=== PATIENT | male | born 1935 | race Caucasian/White ===

== ENCOUNTER 2017-01-01 06:04 | Inpatient (IN) ==
[2017-01-01] MEDS ORDERED: Naloxone 0.4 MG/ML INJ IVP PRN (08:36)
[2017-01-01] MEDS ORDERED: Milk and Molasses Enema 200 ML RC PRN (08:47)
[2017-01-01] MEDS ORDERED: Bisacodyl 10 MG RECTAL SUPPOSITORY RC PRN (08:47)
--- NOTE | 2017-01-01 09:00 | Internal Med History&Physical ---
Date of Encounter: 01/01/17 Time of Encounter: 08:30 Assessment and Plan (1) Acute respiratory failure with hypoxemia Current visit: Yes Status: Acute Secondary to pulmonary edema. Could be secondary to new diagnosis of acute heart failure plus aortic stenosis in the setting of atrial fibrillation. BNP 1690. Troponin 0.12. 2/3: CXR shows bilateral pulmonary edema and moderate pleural effusions. Patient is requiring 2.5 L of oxygen via NC. Lasix 40 mg IV bid. Fluid restriction 1.5 L/day. Strict I/o. low dose coreg. Check echocardiogram. (2) CHF exacerbation Current visit: No Status: Acute unknown type. no prior echo. plan as above. check echocardiogram. Qualifiers: Congestive heart failure type: unspecified congestive heart failure type Qualified Code(s): I50.9 - Heart failure, unspecified (3) Elevated troponin Current visit: No Status: Acute Likely secondary to supply demand mismatch from acute CHF. Follow up serial troponins. Check EKG. (4) Bilateral pleural effusion Current visit: No Status: Acute plan as above. (5) Supratherapeutic INR Current visit: Yes Status: Acute INR 3. Holding warfarin. Daily inr check. (6) Constipation Current visit: Yes Status: Acute History of chronic constipation. He presents with abdominal pain and 3 day without a bowel movement. He agrees with rectal Dulcolax and an enema if needed. Qualifiers: Constipation type: unspecified constipation type Qualified Code(s): K59.00 - Constipation, unspecified (7) Aortic valve calcification Current visit: Yes Status: Chronic CTAP done in 12/24 revealed moderate to severe atherosclerotic disease with severe aortic valvular calcification and bilateral moderate bilateral pleural effusions. echocardiogram ordered. (8) HTN (hypertension) Current visit: Yes Status: Acute Controlled. Bp monitor Qualifiers: Hypertension type: essential hypertension Qualified Code(s): I10 - Essential (primary) hypertension (9) Atrial fibrillation and flutter Current visit: Yes Status: Acute controlled. Holding home dose of warfarin due to supratherapeutic INR. (10) Hypothyroidism Current visit: Yes Status: Acute Continue home dose levothyroxine. 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 Internal Medicine - H&P: HPI Chief complaint: progressive shortness of breath for 3 days. Admitted From: Long-term Nursing Facility Plans for Post Hospital Care: Transfer Halfway Facility History of present illness: Mr. 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 On 12/24, he presented to [facility] with shortness of breath, diagnosed with acute heart failure and sent back to [facility] on 20 mg oral Lasix and oxygen 2L NC. His shortness of breath continued to progress and he developed yellowish productive cough, wheezing and orthopnea. He denies any chest pain, fever, hemoptysis, upper respiratory symptoms, syncope, palpitations, LE edema, urinary symptoms. He complains of abdominal pain and constipation for 3 days. At [facility] ED, he received IV 40 mg Lasix, nebs, Levofloxacin and Vancomycin. Code status formm from [facility] designates his friend Thalia Harris as his POA, . Prior studies: 12/24: CXR showed moderate right pleural effusion and pulmonary edema. 12/31/16: CTAP showed diffuse gastric wall thickening, nodular liver (?cirrhosis) , moderate to severe atherosclerotic disease with severe aortic valvular calcification and bilateral moderate bilateral pleural effusions. Past Med Surg Social Fam HX - Past Medical History Medical history: atrial fibrillation, CVA, GERD, hyperlipidemia, hypertension, thyroid disease Psychiatric history: depression - Past Surgical History Surgical History: orthopedic, other - Social History Smoking Status: Never smoker Smokeless Tobacco Status: No Alcohol use: none Drug use: none Internal Medicine - H&P: Meds Atorvastatin [Lipitor] 20 mg PO HS 12/23/16 [History] Citalopram Hydrobromide [Citalopram HBr] 10 mg PO DAILY 12/23/16 [History] Levothyroxine Sodium [Levoxyl] 88 mcg PO DAILY 12/23/16 [History] Omeprazole 20 mg PO DAILY 12/23/16 [History] Sennosides/Docusate Sodium [Senna Plus] 1 each PO BID 12/23/16 [History] Warfarin perPT [Coumadin perPT] 0.5 mg PO DAILY 12/23/16 [History] Acetaminophen [Tylenol] 1,000 mg PO Q8H 12/24/16 [History] Furosemide [Lasix] 20 mg PO DAILY #10 tablet 12/24/16 [Rx] Multivitamin [Multi-Day Vitamins] 1 each PO DAILY 12/24/16 [History] Citalopram [CeleXA] 5 mg PO DAILY 01/01/17 [History] Mirtazapine [Remeron] 15 mg PO HS 01/01/17 [History] Potassium Chloride [K-Tab ER] 20 meq PO BID 01/01/17 [History] Allergies metoclopramide [From Reglan] Allergy (Verified 01/01/17 04:15) See Comments Unknown reaction. All Systems PM: A 10-system review of systems was performed and is negative for pertinent findings except as documented above in the HPI. - Constitutional Vitals: Temp Pulse Resp BP Pulse Ox 99.3 F 68 18 124/61 93 L 01/01/17 08:21 01/01/17 08:21 01/01/17 08:21 01/01/17 08:21 01/01/17 08:21 General appearance: Present: cooperative, A&O X 3, pleasant, no acute distress, answers questions appropriately - Eye Eye exam: Present: PERRL, sclera anicteric - Neck Neck exam general surgery: Present: supple, trachea midline. Absent: lymphadenopathy - Respiratory Respiratory exam: Present: decreased breath sounds (at lower lung bases. mild wheezes.) - Cardiovascular Cardiovascular exam: Present: irregular rhythm, systolic murmur (at mitral and aortic valve) - GI/Abdominal GI/Abdominal exam: Present: normal bowel sounds, soft. Absent: distended, tenderness - Extremities Exam Extremities exam: Absent: pedal edema - Neurological Exam Neurological exam: Present: alert, oriented X3. Absent: facial droop, speech deficit Additional comments: Left arm hemiparesis with signs of contractures of hand and forearm. left leg with strength 3/5. - Skin Skin exam: Present: dry, intact Internal Med - H&P Results - EKG Data Prior EKG available for review: yes EKG comments: EKG at [facility]: atrial fibrillation/atrial flutter HR 86, no new changes. ST depression in V1-V2 is similar from prior EKG. - Diagnostic Studies Chest x-ray Status: image reviewed by me (bilateral pulmonary edema and moderate pleural effusions. )
[2017-01-01 09:01] LABS: Bilirubin,Urine Negative (Negative); Blood,Urine Trace (Negative); Clarity,Urine Clear (Clear); Color,Urine Yellow (Yellow); Glucose,Urine (UA) Normal (Normal); Ketones,Urine Negative (Negative); Leukocyte Esterase,Urine Negative (Negative); Nitrite,Urine Negative (Negative); Protein,Urine Negative (Neg-Trace); Specific Gravity,Urine 1.009 (1.010-1.025); Urobilinogen,Urine Normal (Normal)
[2017-01-01 09:03] LABS: Bacteria,Urine None Seen per hpf (None-Few); Hyaline Casts,Urine None Seen per lpf (None-Few); Squamous Epithelial Cell,Urine Few per lpf (None-Few); WBC,Urine 0-3 per hpf (0-3)
[2017-01-01] MEDS: Sennosides/Docusate Sodium TABLET PO SCH (09:35)
[2017-01-01] MEDS ORDERED: Bisacodyl 10 MG RECTAL SUPPOSITORY RC ONE (11:00)
[2017-01-01 11:30] LABS: Magnesium 1.7 mg/dL (1.6-2.6)
[2017-01-01 11:55] LABS: Thyroid Stimulating Hormone 3.771 mcIU/mL (0.350-4.840)
[2017-01-01] MEDS: Acetaminophen 325 MG TABLET PO PRN (13:01)
--- NOTE | 2017-01-01 13:06 | Cardiology Consult Note ---
<Joesph Stone - Last Filed: 01/01/17 13:51> Date of Encounter: 01/01/17 Time of Encounter: 13:04 Assessment and Plan (1) CHF exacerbation Current Visit: No Status: Acute - acute respiratory failure secondary to pulmonary edema possibly from acute congestive heart failure - BNP 1690, clinically appears to have acute congestive heart failure - lungs are diminished with bibasilar crackles/rales, absent pedal edema - due to patient's age, clinical condition, and symptoms recommend optimizing medical management for now until results of ECHO before making further recommendations - IV lasix today and switching to PO Lasix tomorrow, as he appears euvolemic, continue to monitor renal function Cr 0.77 - agree with Coreg - no documented prior ECHO, stress, or LHC Qualifiers: Congestive heart failure type: unspecified congestive heart failure type Qualified Code(s): I50.9 - Heart failure, unspecified (2) Elevated troponin Current Visit: No Status: Acute - elevated troponin 0.17 (0.12) likely secondary to supply demand mismatch - due to patient's clinical condition and age would not recommend aggressive treatments (3) Acute respiratory failure with hypoxemia Current Visit: Yes Status: Acute - CXR reviewed, bilateral pulm edema with moderate pleural effusion visualized on CT abd/pelvis - likely secondary to pulmonary edema from acute congestive heart failure - patient currently requiring 2.5L of O2 NC - fluid restriction and strict I/Os - ECHO ordered for today, further recommendations pending results (4) Atrial fibrillation and flutter Current Visit: Yes Status: Acute - patient is irregularly irregular, rate controlled 80 - he is currently supratherapeutic with INR 3, primary team managing - will check ECHO - TSH 3.77 Discussion w patient/family: The assessment and plan as outlined above was discussed with the patient and/or family members who expressed understanding and agreement. All questions were answered. Thank you for involving us in the care of your patient. Please call with any questions. History of Present Illness Consult date: 01/01/17 Requesting physician: Michelle Jo Consult reason: SOB, CHF Chief complaint: SOB History of present illness: Mr. 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 Decided to come be evaluated at [facility] ED because he thought it was time to get checked out. Denies any associated chest pain, fever, cough, palpitations, lightheadedness or nausea. He denies ay history of DVT/PE. Takes coumadin for his atrial fibrillation. Reports weight loss of >10 lbs recently due to decrease appetite and abdominal pain. CT abd/pelvis revealed moderate bilateral pleural effusion and cholelithiasis. BNP elevated at 1690. Troponin initiall 0.12. EKG shows atiral fibrillation with normal rate. Denies any history of cardiac ischemic disease. Important CV studies: - NONE Past Med Surg Social Fam HX - Past Medical History Medical history: atrial fibrillation, CVA, GERD, hyperlipidemia, hypertension, thyroid disease Psychiatric history: depression - Past Surgical History Surgical History: orthopedic, other - Social History Smoking Status: Never smoker Smokeless Tobacco Status: No Alcohol use: none Drug use: none Medications and Allergies Atorvastatin [Lipitor] 20 mg PO HS 12/23/16 [History] Levothyroxine Sodium [Levoxyl] 88 mcg PO DAILY 12/23/16 [History] Omeprazole 20 mg PO DAILY 12/23/16 [History] Sennosides/Docusate Sodium [Senna Plus] 1 tab PO BID 12/23/16 [History] Warfarin perPT [Coumadin perPT] 0.5 mg PO Q48H 12/23/16 [History] Acetaminophen [Tylenol] 1,000 mg PO Q8H 12/24/16 [History] Furosemide [Lasix] 20 mg PO DAILY #10 tablet 12/24/16 [Rx] Multivitamin [Multi-Day Vitamins] 1 tab PO DAILY 12/24/16 [History] Citalopram [CeleXA] 5 mg PO DAILY 01/01/17 [History] Lactose-Reduced Food [Ensure Original] 1 bottle PO QPM 01/01/17 [History] Mirtazapine [Remeron] 15 mg PO HS 01/01/17 [History] Potassium Chloride [K-Tab ER] 10 meq PO BID 01/01/17 [History] Allergies metoclopramide [From Reglan] Allergy (Verified 01/01/17 04:15) See Comments Unknown reaction. All Systems Review: A 10-system review of systems was performed and is negative for pertinent findings except as documented above in the HPI. - Constitutional Constitutional: weakness, weight loss (10 lbs), no fever(s), no headache(s) - Cardiovascular Cardiovascular: dyspnea at rest, dyspnea on exertion, irregular heart rhythm, no chest pain at rest, no chest pain with exertion, no leg edema, no lightheadedness, no palpitations, no syncope - Respiratory Respiratory: cough, dyspnea, no hemoptysis - Gastrointestinal Gastrointestinal: abdominal pain Physical Examination Vital Signs, Last 4 Hours Temp Pulse Resp BP Pulse Ox 01/01/17 11:28 99.5 F 72 16 112/62 97 General: Other (conversational dyspnea) HEENT: Atraumatic, Normocephaly, Mucus Membranes Moist Neck: Normal carotid pulses, Other (JVD 6m) Cardiac: Other (irregularly irregular) Lungs: Other (diminished breath sound bilaterally, bibasilar rales) Neuro: Alert and responsive, No focal deficits noted Abdomen: Soft, Non-Tender Skin: No rashes noted on visualized skin Musculoskeletal: No Chest Wall Tenderness Extremities: No Clubbing, No Cyanosis, No Edema, Normal Pulses Results Lab Results 01/01/17 01/01/17 10:57 10:57 Magnesium 1.7 Troponin I 0.17 H* TSH 3.771 Consult Discharge Plan - Plan Referrals: NO,PCP [Primary Care Provider] - <Oscar Lacey - Last Filed: 01/01/17 14:07> Date of Encounter: 01/01/17 Assessment and Plan Discussion w patient/family: The assessment and plan as outlined above was discussed with the patient and/or family members who expressed understanding and agreement. All questions were answered. Thank you for involving us in the care of your patient. Please call with any questions. History of Present Illness History of present illness: Mr. Kearney is a 81 year old male All Systems Review: A 10-system review of systems was performed and is negative for pertinent findings except as documented above in the HPI. Physical Examination Vital Signs, Last 4 Hours Temp Pulse Resp BP Pulse Ox 01/01/17 11:28 99.5 F 72 16 112/62 97 Results Lab Results 01/01/17 01/01/17 10:57 10:57 Magnesium 1.7 Troponin I 0.17 H* TSH 3.771 - Attending Attestation I examined this patient and my medical decision-making was reviewed with the DOCK SUPERINTENDENT/PA/Advanced Practice Nurse/Resident Physician. I agree with the documented findings, disposition and treatment plan as described except to the extent set forth below. history is liimited. Pt here for sob for the past 2 weeks, no cp , has some PND VSS JVD: 8 cm Chest : occ crackles CVS : irregular , ? s3 appears to have a dense left suzi plegia EKG: reviewed by me shows afib with a controlled ventricular response Echo Pending VSS JVD: ? 5 Lungs; Clear CVS: irregular A/P : New onset CHF CVA: plan; gentle diuresis check echo would not attempt cath etc will make further rec based on echo results Thanks !
[2017-01-01] MEDS: Furosemide 40 MG in 0.9 % Sodium Chloride 50 ML IVPB SCH (20:19)
[2017-01-01] MEDS: Mirtazapine 15 MG TABLET PO SCH (20:20)
[2017-01-02] MEDS: Acetaminophen 325 MG TABLET PO PRN (00:23)
[2017-01-02 06:30] LABS: INR 2.8; Prothrombin Time 31.4 Seconds (9.4-12.1)
[2017-01-02 06:44] LABS: BUN/Creatinine Ratio 30 (6-26); Blood Urea Nitrogen 23 mg/dL (8-26); Calcium 8.9 mg/dL (8.6-10.8); Carbon Dioxide 24 mEq/L (19-29); Chloride 107 mEq/L (98-109); Glucose 95 mg/dL (70-99); Magnesium 1.7 mg/dL (1.6-2.6); Osmolality,Calculated 301 (280-300); Potassium 3.3 mEq/L (3.5-4.5); Sodium 144 mEq/L (136-145); eGFR For African Americans > 60 (> 60); eGFR For Non-African Americans > 60 (> 60)
--- NOTE | 2017-01-02 08:25 | ECHO - Doppler Report ---
Echo with Saline Contrast Name: Shane Kearney Date of Study: 01/01/2017 Date: 1935 Ht: 66.0 in Medical Record#: [id number] Age: 81 Wt: 106.0 lb Gender: Male BSA: 1.53 Order #: [id number] Location: [facility] Room #: 2NE19 Reading Physician: Facundo Wesley DO, MALINDA, CHAI CONTRERAS Ski Base Trimmer: Eva Red Ordering Physician: Michelle Jo MD Primary Physician: None Indications: New diagnosis of CHF Impressions: LVEF 40-45%. Mildly dilated left ventricle. Gllobal left ventricular systolic dysfunction. Indeterminate diastolic function. Normal right ventricular structure and function. Moderate to severely dilated left atrium. No evidence of a PFO with agitated saline contrast. Moderately calcified aortic valve leaflets. Moderate aortic regurgitation. Moderate aortic stenosis. Mean gradient 30 mmHg. Peak velocity 3.60 m/s. Moderate-severe mitral regurgitation. Moderate-severe tricuspid regurgitation. Severe pulmonary hypertension. Estimated RVSP is 60 mmHg. Small pericardial effusion localized around the right atrium. No tamponade. Left Ventricular Wall Motion: Rest Echo Findings The apex, apical inferior, mid inferior, basal inferior, apical anterior, mid anterior, basal anterior, apical septal, mid inferior septal, basal inferior septal, apical lateral, mid anterior lateral, basal anterior lateral, mid anterior septal, mid inferior lateral, basal anterior septal and basal inferior lateral [place] were hypokinetic. Findings: Study Quality * Technically adequate exam. ECG Findings * Rhythm apears to be atrial fibrillation. Left Ventricle * LVEF 40-45%. * Mildly dilated left ventricle. * Gllobal left ventricular systolic dysfunction. * Indeterminate diastolic function. Right Ventricle * Normal right ventricular structure and function. Left Atrium * Moderate to severely dilated left atrium. Right Atrium * Moderately dilated right atrium. Interatrial Septum * No evidence of PFO with agitated saline contrast. Aortic Valve * Trileaflet aortic valve. * Moderately calcified aortic valve leaflets. * Moderate aortic regurgitation. * Moderate aortic stenosis. Mean gradient 30 mmHg. Peak velocity 3.60 m/s. Mitral Valve * Mildly thickened mitral valve leaflets. * Mild mitral annular calcification * Moderate-severe mitral regurgitation. * No mitral stenosis. Tricuspid Valve * Normal tricuspid valve structure. * Moderate-severe tricuspid regurgitation. * Severe pulmonary hypertension. * Estimated RVSP is 60 mmHg. * Estimated RA pressure is 5 mmHg. Pulmonic Valve * Normal pulmonic valve structure and function. * Trace pulmonic regurgitation. Aorta * Normally sized aortic root. Pericardium * There is a small pericardial effusion localized around the right atrium. * There is no echocardiographic evidence of tamponade. IVC * Normal IVC dimensions and inspiratory collapse. Pulmonary Artery * Normal visualized portions of the main pulmonary artery. History Hypertension Congestive Heart Failure Contrast: Agitated saline 20 ml. Measurements: BP: 107/ 60 2D Normal Values RVIDd: 3.20 cm <2.7 cm IVSd: .90 cm 0.6 - 1.0 cm LVIDd: 5.70 cm 3.7 - 5.6 cm LVPWd: .90 cm 0.6 - 1.1 cm LVIDs: 4.10 cm 1.5 - 3.6 cm AO: 3.10 cm < 4.0 cm LA: 4.40 cm 2.0 - 4.0cm %FS: 21.20 cm >25 % LVOT Diam: 2.00 cm LA volume: 77 Mitral Valve Peak E:1.20 m/sec Peak A:1.00 m/sec E/A Ratio:1.2 Peak E' Lat Oscar:6.04 cm/s Peak E' Med Oscar:5.07 cm/s E/E' Lat Ratio:19.9 E/E' Med Ratio:23.7 LVOT Peak Oscar:.92 m/sec Mean Oscar:.68 m/sec Peak Grad:3.00 mmHg Mean Grad:2.00 mmHg Aortic Valve Peak Oscar:3.60 m/sec Mean Oscar:2.57 m/sec Peak Grad:52.00 mmHg Mean Grad:30.00 mmHg Valve Area:.76 cm2 AI pressure Half-time: 387.00 msec Tricuspid Valve TV Regurg Peak Grad: 55.00mmHg TV Regurg Peak Oscar: 3.72m/sec Updated by Facundo Wesley DO, MALINDA, CHAI CONTRERAS on 01/02/2017 8:19:22 AM electronically signed on 01/02/2017 8:20:26 AM with status of Final Wall Motion Rogers: 1=Normal, 2=Hypokinesis, 3=Akinesis, 4=Dyskinesis, 5=Aneurysmal, 6=Hyperkinetic, X=Not Visualized (Blank)=Missing
--- NOTE | 2017-01-02 08:37 | Internal Med Progress Note ---
Date of Encounter: 01/02/17 Time of Encounter: 08:33 - Assessment and plan (1) Acute systolic (congestive) heart failure Current Visit: Yes Status: Acute Assessment and plan: New onset of Acute systolic CHF EF : 40 -45% On Warfarin ( resumed INR 2.7), Lisinopril ( 2.5 mg as his blood pressure is at borderline) , BB, Statin and Lasix with K supplement. Negative 630 ml.( I/O), Weight 48.2 kg cardiology on board. (2) Elevated troponin Current Visit: No Status: Acute Assessment and plan: demand ischimia. no further work up. (3) Acute respiratory failure with hypoxemia Current Visit: Yes Status: Acute Assessment and plan: respiratory symptoms secondary to cardiac issue. he feels much better. 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 3 years old lives in a [place] Medical decision making : Patient has [id number] risk for worsening heart failure in spite of being on appropriate treatment. - Subjective Interval history: Patient seen and examined. Chart reviewed. Patient feels occasional shortness of breath. denies chest pain. - Constitutional Vitals: Temp Pulse Resp BP Pulse Ox 97.1 F L 73 16 110/58 97 01/02/17 07:53 01/02/17 07:53 01/02/17 07:53 01/02/17 07:53 01/02/17 07:53 General appearance: Present: cooperative, A&O X 3, pleasant, no acute distress, answers questions appropriately Exam: severe left dense hemiplegia. - Head Head exam: Present: atraumatic, normocephalic - Eye Eye exam: Present: PERRL, conjuntiva pink, sclera anicteric Pupils: Present: PERRL - Neck Neck exam general surgery: Present: supple, trachea midline. Absent: lymphadenopathy - Respiratory Respiratory exam: Present: CTAB. Absent: accessory muscle use, rales, rhonchi, wheezes - Cardiovascular Cardiovascular exam: Present: RRR, +S1, +S2. Absent: diastolic murmur, gallop, rubs, systolic murmur - GI/Abdominal GI/Abdominal exam: Present: normal bowel sounds, soft, no peritoneal signs. Absent: distended, tenderness - Extremities Exam Extremities exam: Present: warm, radial pulses palpable and symetrical. Absent : calf tenderness, cyanotic, pedal edema - Neurological Exam Neurological exam: Present: CN II-XII intact, oriented X3, no focal deficits. Absent: pronater drift, facial droop, speech deficit - Skin Skin exam: Present: dry, intact Internal Medicine: Result - Labs CBC & Chem 7: 01/02/17 05:33 Labs: BMP 01/02/17 05:33 Sodium 144 Potassium 3.3 L Chloride 107 Carbon Dioxide 24 BUN 23 Creatinine 0.76 Glucose 95 Calcium 8.9 Cardiac Enzymes 01/01/17 01/01/17 Range/Units 10:57 18:23 Troponin I 0.17 H* 0.20 H* (0-0.03) ng/mL Urine 01/01/17 Range/Units 08:40 Urine Color Yellow (Yellow) Urine Clarity Clear (Clear) Urine pH 7.0 (5.0-8.0) pH Units Ur Specific [place] 1.009 L (1.010-1.025) Urine Protein Negative (Neg-Trace) mg/dL Urine Glucose (UA) Normal (Normal) mg/dL - ABG Interpretation ABG results: PT/INR, D-dimer PT 31.4 Seconds (9.4-12.1) H 01/02/17 05:33 Consult Discharge Plan - Plan Referrals: NO,PCP [Primary Care Provider] -
--- NOTE | 2017-01-02 10:50 | Cardiology Progress Note ---
Date of Encounter: 01/02/17 Time of Encounter: 10:30 Assessment and Plan Discussion w patient/family: The assessment and plan as outlined above was discussed with the patient and/or family members who expressed understanding and agreement. All questions were answered. Thank you for involving us in the care of your patient. Please call with any questions. Subjective Interval history: less sob , able to lie flat no cp. cough Objective Vital Signs, Last 4 Hours Temp Pulse Resp BP Pulse Ox 01/02/17 07:53 97.1 F L 73 16 110/58 97 General: Conversant HEENT: Atraumatic Cardiac: Reg Rate and Rhythm Lungs: Normal Breath Sounds Abdomen: Soft Skin: No rashes noted on visualized skin Musculoskeletal: No Chest Wall Tenderness Extremities: No Clubbing Results 01/02/17 05:33 Lab Results 01/01/17 01/01/17 01/01/17 10:57 10:57 18:23 INR Sodium Potassium Chloride Carbon Dioxide BUN Creatinine Glucose Calcium Magnesium 1.7 Troponin I 0.17 H* 0.20 H* B-Natriuretic Peptide TSH 3.771 01/02/17 01/02/17 01/02/17 05:33 05:33 05:33 INR 2.8 Sodium 144 Potassium 3.3 L Chloride 107 Carbon Dioxide 24 BUN 23 Creatinine 0.76 Glucose 95 Calcium 8.9 Magnesium 1.7 Troponin I B-Natriuretic Peptide 2300 H TSH Consult Discharge Plan - Plan Additional Instructions: keep on po lasix pt appears to be euvolemic will sign off Thanks Referrals: NO,PCP [Primary Care Provider] -
[2017-01-02] MEDS: Sennosides/Docusate Sodium TABLET PO SCH (10:59)
[2017-01-02] MEDS: Mag Hydrox/Al Hydrox/Simeth 30 ML UDC PO PRN (13:29)
[2017-01-02] MEDS: Furosemide 40 MG in 0.9 % Sodium Chloride 50 ML IVPB SCH ×2 (13:32→17:10)
[2017-01-02] MEDS ORDERED: *HR* Warfarin 1 MG TABLET PO SCH (18:00)
[2017-01-02] MEDS: Mirtazapine 15 MG TABLET PO SCH (21:07)
[2017-01-03 05:15] LABS: Basophils % 0.3 %; Eosinophils # 0.2 K/mcL (0.0-0.6); Eosinophils % 2.3 %; Hematocrit 40.9 % (37.5-50.1); Hemoglobin 13.3 g/dL (12.9-16.9); Immature Granulocytes % 0.9 % (0-4); Lymphocytes # 1.1 K/mcL (0.6-4.6); Lymphocytes % 12.6 %; Mean Corpuscular HGB Conc 32.5 g/dL (31.6-35.5); Mean Corpuscular Hemoglobin 30.3 pg (28.0-33.3); Mean Corpuscular Volume 93.2 fL (83.0-100.0); Mean Platelet Volume 11.4 fL (9.4-12.4); Monocytes # 0.7 K/mcL (0.0-1.3); Monocytes % 8.1 %; Neutrophils # 6.8 K/mcL (1.6-8.9); Platelet Count 258 K/mcL (140-400); Red Blood Count 4.39 M/mcL (4.19-5.50); Red Cell Distribution Width 16.8 % (11.5-14.5); Segmented Neutrophils % 75.8 %
[2017-01-03 05:27] LABS: Alanine Aminotransferase 21 Units/L (0-55); Albumin 2.3 g/dL (3.5-5.0); Albumin/Globulin Ratio 0.5 (1.1-2.2); Alkaline Phosphatase 73 Units/L (38-126); Aspartate Amino Transferase 40 Units/L (5-34); BUN/Creatinine Ratio 33 (6-26); Bilirubin,Total 0.9 mg/dL (0.2-1.2); Blood Urea Nitrogen 23 mg/dL (8-26); Carbon Dioxide 25 mEq/L (19-29); Chloride 106 mEq/L (98-109); Globulin 4.8 g/dL (2.4-3.5); Glucose 100 mg/dL (70-99); Osmolality,Calculated 300 (280-300); Potassium 3.3 mEq/L (3.5-4.5); Sodium 143 mEq/L (136-145); Total Protein 7.1 g/dL (6.0-8.3); eGFR For African Americans > 60 (> 60); eGFR For Non-African Americans > 60 (> 60)
[2017-01-03 05:28] LABS: BUN/Creatinine Ratio 32 (6-26); Blood Urea Nitrogen 22 mg/dL (8-26); Calcium 8.9 mg/dL (8.6-10.8); Carbon Dioxide 24 mEq/L (19-29); Chloride 106 mEq/L (98-109); Glucose 100 mg/dL (70-99); Osmolality,Calculated 297 (280-300); Potassium 3.4 mEq/L (3.5-4.5); Sodium 142 mEq/L (136-145); eGFR For African Americans > 60 (> 60); eGFR For Non-African Americans > 60 (> 60)
[2017-01-03] MEDS: Warfarin perPT PO SCH ×2 (07:55→08:27)
[2017-01-03] MEDS: Furosemide 40 MG in 0.9 % Sodium Chloride 50 ML IVPB SCH ×2 (08:36→18:32)
[2017-01-03] MEDS: Sennosides/Docusate Sodium TABLET PO SCH (08:44)
[2017-01-03] MEDS ORDERED: 0.9 % Sodium Chloride 500 ML IVC ONE (11:12)
[2017-01-03] MEDS ORDERED: Levofloxacin 500 MG/100 ML 500 MG/100 ML BAG IVPB SCH (16:00)
--- NOTE | 2017-01-03 17:08 | Internal Med Progress Note ---
Date of Encounter: 01/03/17 Time of Encounter: 17:01 - Assessment and plan (1) Acute systolic (congestive) heart failure Current Visit: Yes Status: Acute Assessment and plan: New onset of Acute systolic CHF EF : 40 -45% On Warfarin ( resumed INR 2.7), Lisinopril ( 2.5 mg as his blood pressure is at borderline) , BB, Statin and Lasix with K supplement. Negative 630 ml.( I/O), Weight 48.2 kg cardiology on board. 01/03/2017 546 ml negative balance Weight drop by 800 mg on ACEI/BB/ASA/Statin also has lasix on board with K replacement. (2) Elevated troponin Current Visit: No Status: Acute Assessment and plan: demand ischimia. no further work up. (3) Acute respiratory failure with hypoxemia Current Visit: Yes Status: Acute Assessment and plan: respiratory symptoms secondary to cardiac issue. he feels much better. 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 3 years old lives in a NH 01/03/2017 decrease mentation possibility of New CVA/Infection will get CT head/Blood culture/Abx discussed with family and POA verbalized understanding. Medical decision making : Patient has [id number] risk for worsening heart failure in spite of being on appropriate treatment. - Subjective Interval history: Patient seen and examined. Chart reviewed. Patient feels occasional shortness of breath. denies chest pain. 01/03/2017 noted patient had decrease mentation family and POA at bedside. discuss at length. possibility of another CVA, or infection as possible etilogy for his worsening. POA understood and other family members understood. - Constitutional Vitals: Temp Pulse Resp BP Pulse Ox 99.2 F 53 16 81/51 100 01/03/17 15:36 01/03/17 15:36 01/03/17 15:36 01/03/17 15:36 01/03/17 15:36 General appearance: Present: cooperative, A&O X 3, pleasant, no acute distress, answers questions appropriately - Head Head exam: Present: atraumatic, normocephalic - Eye Eye exam: Present: PERRL, conjuntiva pink, sclera anicteric Pupils: Present: PERRL - Neck Neck exam general surgery: Present: supple, trachea midline. Absent: lymphadenopathy - Respiratory Respiratory exam: Present: CTAB. Absent: accessory muscle use, rales, rhonchi, wheezes - Cardiovascular Cardiovascular exam: Present: RRR, +S1, +S2. Absent: diastolic murmur, gallop, rubs, systolic murmur - GI/Abdominal GI/Abdominal exam: Present: normal bowel sounds, soft, no peritoneal signs. Absent: distended, tenderness - Extremities Exam Extremities exam: Present: warm, radial pulses palpable and symetrical. Absent : calf tenderness, cyanotic, pedal edema - Neurological Exam Neurological exam: Present: CN II-XII intact, oriented X3, no focal deficits. Absent: pronater drift, facial droop, speech deficit - Skin Skin exam: Present: dry, intact Internal Medicine: Result - Labs CBC & Chem 7: 01/03/17 04:49 01/03/17 04:49 Labs: Short CBC 01/03/17 Range/Units 04:49 WBC 9.0 (4.3-11.1) K/mcL Hgb 13.3 (12.9-16.9) g/dL Hct 40.9 (37.5-50.1) % Plt Count 258 (140-400) K/mcL Neutrophils # 6.8 (1.6-8.9) K/mcL BMP 01/03/17 01/03/17 04:49 04:49 Sodium 142 143 Potassium 3.4 L 3.3 L Chloride 106 106 Carbon Dioxide 24 25 BUN 22 23 Creatinine 0.68 L 0.69 L Glucose 100 H 100 H Calcium 8.9 9.0 Liver Function 01/03/17 Range/Units 04:49 Total Bilirubin 0.9 (0.2-1.2) mg/dL AST 40 H (5-34) Units/L ALT 21 (0-55) Units/L Alkaline Phosphatase 73 (38-126) Units/L Albumin 2.3 L (3.5-5.0) g/dL - ABG Interpretation ABG results: PT/INR, D-dimer PT 33.0 Seconds (9.4-12.1) H 01/03/17 04:49 - Impressions Impressions Head CT 01/03/17 15:54 IMPRESSION: 1. No acute intracranial abnormality. 2. Acute right maxillary sinusitis. D/ / 01/03/2017 16:49:39 Keo Davey MD / ferny Interpreting Provider: Keo Davey MD Consult Discharge Plan - Plan Additional Instructions: keep on po lasix pt appears to be euvolemic will sign off Thanks Referrals: NO,PCP [Primary Care Provider] -
[2017-01-03] MEDS: Piperacillin/Tazobactam 3.375 GM in D5% in Water (Mini-Bag+) 100 ML IVPB SCH (18:32)
[2017-01-03] MEDS: Mirtazapine 15 MG TABLET PO SCH (22:34)
[2017-01-04] MEDS: Piperacillin/Tazobactam 3.375 GM in D5% in Water (Mini-Bag+) 100 ML IVPB SCH ×3 (00:13→08:34)
[2017-01-04] MEDS: Acetaminophen 325 MG TABLET PO PRN ×3 (00:49→18:22)
[2017-01-04 04:47] LABS: Basophils % 0.5 %; Eosinophils # 0.4 K/mcL (0.0-0.6); Eosinophils % 4.5 %; Hematocrit 36.6 % (37.5-50.1); Immature Granulocytes % 0.3 % (0-4); Lymphocytes # 1.5 K/mcL (0.6-4.6); Lymphocytes % 17.7 %; Mean Corpuscular Hemoglobin 29.7 pg (28.0-33.3); Mean Corpuscular Volume 92.9 fL (83.0-100.0); Mean Platelet Volume 11.7 fL (9.4-12.4); Monocytes # 0.9 K/mcL (0.0-1.3); Monocytes % 9.9 %; Neutrophils # 5.8 K/mcL (1.6-8.9); Platelet Count 249 K/mcL (140-400); Red Blood Count 3.94 M/mcL (4.19-5.50); Red Cell Distribution Width 16.9 % (11.5-14.5); Segmented Neutrophils % 67.1 %
[2017-01-04 05:04] LABS: BUN/Creatinine Ratio 35 (6-26); Blood Urea Nitrogen 25 mg/dL (8-26); Calcium 8.5 mg/dL (8.6-10.8); Carbon Dioxide 24 mEq/L (19-29); Chloride 110 mEq/L (98-109); Glucose 99 mg/dL (70-99); Osmolality,Calculated 304 (280-300); Potassium 3.7 mEq/L (3.5-4.5); Sodium 145 mEq/L (136-145); eGFR For African Americans > 60 (> 60); eGFR For Non-African Americans > 60 (> 60)
[2017-01-04 05:05] LABS: Hemoglobin 11.7 g/dL (12.9-16.9)
[2017-01-04 05:07] LABS: INR 2.7
[2017-01-04] MEDS: Sennosides/Docusate Sodium TABLET PO SCH (08:33)
[2017-01-04] MEDS: Furosemide 40 MG in 0.9 % Sodium Chloride 50 ML IVPB SCH (08:35)
--- NOTE | 2017-01-04 10:21 | Internal Med Progress Note ---
<Carlos Wilkerson - Last Filed: 01/04/17 15:54> Date of Encounter: 01/04/17 Time of Encounter: 10:21 - Assessment and plan (1) Hypotension Current Visit: Yes Status: Acute Assessment and plan: Echo showed LVEF 40 to 45%, global LV systolic dysfunction, BNP was 2300 2 days ago, bradycardiac as well, possible cardiogenic shock, MAP is below 60, did not respond to fluid, will check stat trop, BNP, pt is lethergic, spoke to pt's medical POA, changed code status to DNRCCA/DNI but pressor support for his BP is fine, will move him to step down unit and will start him on dobutamine drip. Qualifiers: Qualified Code(s): I95.9 - Hypotension, unspecified (2) Bradycardia Current Visit: Yes Status: Acute Assessment and plan: Received coreg this AM, gave 1x 0.5mg atropine, HR improved to 60, con't to monitor. (3) Systolic CHF Current Visit: Yes Status: Acute Assessment and plan: Suspecting cardiogenic shock, will start him on dobutamin drip in step down unit , closely monitor his VS and clinical status. Qualifiers: Qualified Code(s): I50.20 - Unspecified systolic (congestive) heart failure (4) Biliary colic Current Visit: Yes Status: Acute Assessment and plan: When he is more stable, will consult surgery. (5) History of atrial fibrillation Current Visit: Yes Status: Acute Assessment and plan: Bradycardic, on coumadin, will hold coreg for now. (6) DVT prophylaxis Current Visit: Yes Status: Acute Assessment and plan: Therapeutic INR. - Subjective Interval history: Pt seen and examined, earlier this AM, pt was resting comfortably and POA told me he has been having RUQ pain after each meal, I saw him this afternoon, very lethergic, somnolent, slow response, BP and HR are low. - Constitutional Vitals: Temp Pulse Resp BP Pulse Ox 97.6 F 66 20 100/57 92 L 01/04/17 07:00 01/04/17 07:00 01/04/17 07:00 01/04/17 07:00 01/04/17 07:00 General appearance: Present: A&O X 2, mild distress (slow mentation, drowsy), no acute distress - Head Head exam: Present: atraumatic, normocephalic - Eye Eye exam: Present: PERRL, conjuntiva pink, sclera anicteric Pupils: Present: PERRL - Neck Neck exam general surgery: Present: supple, trachea midline. Absent: lymphadenopathy - Respiratory Respiratory exam: Present: rales (at base b/l). Absent: accessory muscle use, CTAB, rhonchi, wheezes - Cardiovascular Cardiovascular exam: Present: RRR, +S1, +S2. Absent: diastolic murmur, gallop, rubs, systolic murmur - GI/Abdominal GI/Abdominal exam: Present: normal bowel sounds, soft, no peritoneal signs. Absent: distended, tenderness - Extremities Exam Extremities exam: Present: warm, radial pulses palpable and symetrical. Absent : calf tenderness, cyanotic, pedal edema - Neurological Exam Neurological exam: Present: CN II-XII intact. Absent: oriented X3, no focal deficits, strengths equal and symetr throughout (let sided weakness, residual), pronater drift, facial droop, speech deficit - Skin Skin exam: Present: dry, intact Internal Medicine: Result - Labs CBC & Chem 7: 01/04/17 04:08 01/04/17 04:08 Labs: Short CBC 01/04/17 Range/Units 04:08 WBC 8.7 (4.3-11.1) K/mcL Hgb 11.7 L D (12.9-16.9) g/dL Hct 36.6 L (37.5-50.1) % Plt Count 249 (140-400) K/mcL Neutrophils # 5.8 (1.6-8.9) K/mcL BMP 01/04/17 04:08 Sodium 145 Potassium 3.7 Chloride 110 H Carbon Dioxide 24 BUN 25 Creatinine 0.72 Glucose 99 Calcium 8.5 L - ABG Interpretation ABG results: PT/INR, D-dimer PT 30.0 Seconds (9.4-12.1) H 01/04/17 04:08 - Impressions Impressions Head CT 01/03/17 15:54 IMPRESSION: 1. No acute intracranial abnormality. 2. Acute right maxillary sinusitis. D/ / 01/03/2017 16:49:39 Keo Davey MD / ferny Interpreting Provider: Keo Davey MD Consult Discharge Plan - Plan Additional Instructions: keep on po lasix pt appears to be euvolemic will sign off Thanks Referrals: NO,PCP [Primary Care Provider] - <Daniel Álvarez P - Last Filed: 01/04/17 18:06> Date of Encounter: 01/04/17 - Assessment and plan (1) Acute systolic (congestive) heart failure Current Visit: Yes Status: Acute (2) Elevated troponin Current Visit: No Status: Acute (3) Acute respiratory failure with hypoxemia Current Visit: Yes Status: Acute (4) Atrial fibrillation and flutter Current Visit: Yes Status: Acute (5) Hypothyroidism Current Visit: Yes Status: Acute Qualifiers: Hypothyroidism type: unspecified Qualified Code(s): E03.9 - Hypothyroidism , unspecified (6) CVA, old, 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06 H* (0-0.03) ng/mL - ABG Interpretation ABG results: PT/INR, D-dimer PT 30.0 Seconds (9.4-12.1) H 01/04/17 04:08 - Impressions Impressions Head CT 01/03/17 15:54 IMPRESSION: 1. No acute intracranial abnormality. 2. Acute right maxillary sinusitis. D/ / 01/03/2017 16:49:39 Keo Davey MD / ferny Interpreting Provider: Keo Davey MD - Attending Attestation I examined this patient and my medical decision-making was reviewed with the MAIL READER/PA/Advanced Practice Nurse/Resident Physician. I agree with the documented findings, disposition and treatment plan as described except to the extent set forth below. spoke with POA who is RN by profession. keen to keep current treatment till her son comes to see patient. HANNAH : tomorrow ( possible) Understood severity of illness and agree with Plan of Action. cardiology on board. will follow recommendations. IV peripheral line for pressers heri.
[2017-01-04] MEDS ORDERED: *HR* Atropine Sulfate 1 MG/10 ML SYRINGE ONE ×2 (11:48→15:59)
[2017-01-04] MEDS: *HR* Atropine Sulfate 1 MG/10 ML SYRINGE ONE ×2 (12:16→16:01)
[2017-01-04] MEDS ORDERED: 0.9 % Sodium Chloride 500 ML IVC ONE (12:22)
[2017-01-04] MEDS ORDERED: 0.9 % Sodium Chloride 500 ML ONE ×2 (12:27→15:26)
[2017-01-04] MEDS: Warfarin perPT PO SCH (16:07)
[2017-01-04] MEDS ORDERED: *HR* Atropine Sulfate 1 MG/10 ML SYRINGE IVP STA (16:15)
--- NOTE | 2017-01-04 17:31 | Electrocardiograph Report ---
[address] [address] Test Date: 2017-01-03 Pat Name: Shane Kearney Department: 111 Room: 2N02 Gender: M Entry Level Account Manager: : 1935 Requested By: Daniel Álvarez Order Number: [id number] Reading MD: Patricia Garvey Measurements Intervals [place] Rate: 55 P: [place]: 0 QRS: -3 QRSD: 106 T: 40 QT: 539 QTc: 529 Interpretive Statements ATRIAL FLUTTER/TACHYCARDIA WITH SLOW VENTRICULAR RESPONSE POSSIBLE RIGHT VENTRICULAR CONDUCTION DELAY NONSPECIFIC T-WAVE ABNORMALITY Electronically Signed On 01-04-2017 17:29:40 EST by Patricia Garvey
[2017-01-04] MEDS ORDERED: *HR* Warfarin 1 MG TABLET PO ONE (18:00)
[2017-01-04] MEDS: Mag Hydrox/Al Hydrox/Simeth 30 ML UDC PO PRN (18:22)
[2017-01-04] MEDS: Mirtazapine 15 MG TABLET PO SCH (20:51)
[2017-01-04] MEDS ORDERED: 0.9 % Sodium Chloride 250 ML ONE (20:54)
[2017-01-04] MEDS ORDERED: PHENobarbital 15 MG TABLET PO STA ×2 (22:02→22:16)
[2017-01-05] MEDS ORDERED: PHENobarbital 65 MG/ML VIAL IVP STA (01:26)
[2017-01-05 05:10] LABS: Eosinophils % 4.6 %; Hematocrit 34.7 % (37.5-50.1); Hemoglobin 11.4 g/dL (12.9-16.9); Immature Granulocytes % 0.2 % (0-4); Lymphocytes % 16.7 %; Mean Corpuscular HGB Conc 32.9 g/dL (31.6-35.5); Mean Corpuscular Hemoglobin 30.9 pg (28.0-33.3); Mean Platelet Volume 11.5 fL (9.4-12.4); Monocytes % 7.3 %; Platelet Count 254 K/mcL (140-400); Red Blood Count 3.69 M/mcL (4.19-5.50); Red Cell Distribution Width 16.8 % (11.5-14.5); Segmented Neutrophils % 70.6 %
[2017-01-05 05:11] LABS: Basophils # 0.1 K/mcL (0.0-0.2); Basophils % 0.6 %; Eosinophils # 0.4 K/mcL (0.0-0.6); Lymphocytes # 1.4 K/mcL (0.6-4.6); Monocytes # 0.6 K/mcL (0.0-1.3); Neutrophils # 6.1 K/mcL (1.6-8.9)
[2017-01-05 05:18] LABS: INR 2.7; Prothrombin Time 29.7 Seconds (9.4-12.1)
[2017-01-05] MEDS: Melatonin 3 MG TABLET PO SCH ×2 (05:19→20:44)
[2017-01-05 05:30] LABS: BUN/Creatinine Ratio 31 (6-26); Blood Urea Nitrogen 22 mg/dL (8-26); Calcium 8.6 mg/dL (8.6-10.8); Carbon Dioxide 23 mEq/L (19-29); Chloride 112 mEq/L (98-109); Glucose 93 mg/dL (70-99); Osmolality,Calculated 303 (280-300); Potassium 3.9 mEq/L (3.5-4.5); Sodium 145 mEq/L (136-145); eGFR For African Americans > 60 (> 60); eGFR For Non-African Americans > 60 (> 60)
[2017-01-05] MEDS: Sennosides/Docusate Sodium TABLET PO SCH (08:20)
[2017-01-05] MEDS: Ondansetron 4 MG/2 ML VIAL IVP PRN (09:30)
[2017-01-05] MEDS ORDERED: Ondansetron 4 MG/2 ML VIAL ONE (09:56)
--- NOTE | 2017-01-05 10:25 | Cardiology Progress Note ---
Date of Encounter: 01/05/17 Time of Encounter: 10:11 Assessment and Plan (1) Acute respiratory failure with hypoxemia Current Visit: Yes Status: Acute Secondary to pulmonary edema, mild sytolic CHF, severe pulmonary hypertension. Spo2 98% on 2 L NC. Repeat CXR. (2) Acute systolic (congestive) heart failure Current Visit: Yes Status: Acute EF 45%, global hypokenesis. Acute systolic heart failure. He was initially diuresed with IV lasix and changed to oral once euvolemic. Continues to have SOB. No overt fluid overload on seen physical exam. Loud rhonci noted. Medical management recommended for new low EF d/t advanced age and deconditioning. He denies chest pain. Re-check CXR. BNP 2300, 1921. I&O currently shows -33ml for total stay. If he continues to have pulmonary edema will need to restart lasix. B/p currently stable off dobutamine. Kidney function is stable. Agree with holding carvedilol and jakob inhibitor. We will continue to follow with you. (3) Atrial fibrillation and flutter Current Visit: Yes Status: Acute Known atrial fibrillation on coumadin therapy. Rate controlled atrial flutter on telemetry. HR seen as low as 35 bpm at 0840 this morning. Avh HR 67 bpm. Hold carvedilol and continue to monitor. - TSH 3.77 -INR 2.7 (4) Hypotension Current Visit: Yes Status: Acute Hold anti-hypertensives. B/p improved. Cardiogenic shock not suspected. Pt may not be tolerating diuretic, carvedilol, and lisinopril. Continue to monitor. Qualifiers: Qualified Code(s): I95.9 - Hypotension, unspecified (5) Bradycardia Current Visit: Yes Status: Acute Bradycardia seen after carvedilol given yesterday. Given atropine with good response. Hold AV khadar blockers. Continue to monitor telemetry. Discussion w patient/family: The assessment and plan as outlined above was discussed with the patient and/or family members who expressed understanding and agreement. All questions were answered. Thank you for involving us in the care of your patient. Please call with any questions. Subjective Principal diagnosis: Acute systolic/diastolic CHF Interval history: Mr. Kearney is a frail 81-year-old male with a history of atrial fibrillation on coumadin, HTN, HLD, and previous CVA who presented from home with respiratory distress. He reported a 10 lb weight loss prior to admission. His initial work-up revealed: CXR pulmonary edema and possible acute CHF. Bilateral pleural effusions. TTE showed EF 45% with global systolic dysfunction, moderately severe dilated left atrium, moderately calcified aortic valve leaflets, moderate aortic regurgitation, moderate aortic stenosis, mean gradient 30 mmHg, PV 3.60 m/s, Moderate to severe MR, severe pulmonary hypertension, and small pericardial effusion. BNP, 1690, 2300, 1921. Troponin - 0.17, 0.20, 0.06. CT scan at [facility] 12/30/16 showed diffuse gastric wall thickening , differential diagnosis include peristalisis, gastritis, vs possible malignancy and EGD was recommended. Nodular liver seen, possible cirrhosis. Enlarged prostate with chronic outlet obstruction with bladder wall thickening. Moderate right pleural effusions and small left pleural effusion. Moderate to severe atherosclerosis. He was seen to have rate controlled atrial flutter on telemetry. He was initially seen by cardiology and medical management was recommended. Yesterday pt became hypotensive and required dobutamine gtt. Cardiology consulted for possible cardiogenic shock. He is now off of dobutamine gtt. B/p 117/51 on my exam. He continues to c/o SOB and nausea. Objective Vital Signs, Last 4 Hours Temp Pulse Resp BP Pulse Ox 01/05/17 07:38 72 20 112/60 97 01/05/17 07:29 79 01/05/17 07:17 97.7 F 79 20 112/60 97 General: Conversant, No Apparent Distress, Other (poor historian. A&O x2, reoriented to time. ) HEENT: Atraumatic, Normocephaly, Mucus Membranes Moist Neck: No JVD, Normal carotid pulses Cardiac: Other (Irregularly irregular. ) Lungs: Other (Loud course rhonci throughout. ) Neuro: Alert and responsive, No focal deficits noted Abdomen: Soft, Non-Tender Skin: No rashes noted on visualized skin Musculoskeletal: No Chest Wall Tenderness Extremities: No Clubbing, No Cyanosis, No Edema, Normal Pulses Results 01/05/17 04:36 01/05/17 04:36 Lab Results 01/04/17 01/04/17 01/05/17 15:26 15:26 04:36 WBC Hgb Hct Plt Count INR 2.7 Sodium Potassium Chloride Carbon Dioxide BUN Creatinine Glucose Calcium Troponin I 0.06 H* B-Natriuretic Peptide 1921 H 01/05/17 01/05/17 04:36 04:36 WBC 8.6 Hgb 11.4 L Hct 34.7 L Plt Count 254 INR Sodium 145 Potassium 3.9 Chloride 112 H Carbon Dioxide 23 BUN 22 Creatinine 0.70 L Glucose 93 Calcium 8.6 Troponin I B-Natriuretic Peptide Head CT 01/03/17 15:54 IMPRESSION: 1. No acute intracranial abnormality. 2. Acute right maxillary sinusitis. D/ / 01/03/2017 16:49:39 Keo Davey MD / ferny Interpreting Provider: Keo Davey MD - Imaging and Cardiology Chest Xray: report reviewed Echo: report reviewed - EKG Interpretation EKG results cardiology: other (Telemetry review shows avg HR 67 bpm. Minimum HR was 30 bpm at 0852 am.) Consult Discharge Plan - Plan Additional Instructions: keep on po lasix pt appears to be euvolemic will sign off Thanks Referrals: NO,PCP [Primary Care Provider] -
--- NOTE | 2017-01-05 11:35 | Internal Med Progress Note ---
Date of Encounter: 01/05/17 Time of Encounter: 09:00 - Assessment and plan (1) Acute respiratory failure with hypoxemia Current Visit: Yes Status: Acute Assessment and plan: respiratory symptoms secondary to cardiac issue. he feels much better. We will repeat chest x-ray (2) Atrial fibrillation and flutter Current Visit: Yes Status: Acute Assessment and plan: on coumadin and rate controlled. Hold beta galina because of low blood pressure and tachycardia. Patient is at high risk because of his own Coumadin, needed close monitoring. (3) Hypotension Current Visit: Yes Status: Acute Assessment and plan: Possibly due to beta galina and FRANCISCA inhibitor, which are all on hold now. Cardiology consult appreciated. Off dopamine drip now and the blood pressure is okay. We will continue to closely monitor BP. Qualifiers: Hypotension type: hypotension due to drug Qualified Code(s): I95.2 - Hypotension due to drugs (4) Hypothyroidism Current Visit: Yes Status: Acute Assessment and plan: replacement therapy Qualifiers: Hypothyroidism type: unspecified Qualified Code(s): E03.9 - Hypothyroidism , unspecified (5) Systolic CHF Current Visit: Yes Status: Acute Assessment and plan: Echo shows EF of 40-45%. Elevated BNP. We will continue closely monitor patient. Cardiology on case and recommendation will follow. Qualifiers: Qualified Code(s): I50.20 - Unspecified systolic (congestive) heart failure (6) CHF exacerbation Current Visit: No Status: Acute Assessment and plan: Patient admitted with shortness of breath, consider CHF exacerbation. Now his respiratory distress has improved. Lasix is on hold due to hypotension. 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 Patient is on Coumadin and atorvastatin. (8) DVT prophylaxis Current Visit: Yes Status: Acute Assessment and plan: Therapeutic INR. - Time Spent With Patient Greater than 35 minutes - Subjective Interval history: Patient is a 81-year-old male admitted for SOB. His past medical history is significant for A. fib on Coumadin, CVA, hyperlipidemia, hypertension, thyroid disease. Patient was seen and examined. He has less shortness of breath, in no acute respiratory distress. Vitals are stable. Dopamine has been discontinued. Cardiology consult appreciated. We will repeat a chest x-ray. - Constitutional Vitals: Temp Pulse Resp BP Pulse Ox 97.7 F 72 20 108/55 97 01/05/17 07:17 01/05/17 11:00 01/05/17 11:00 01/05/17 11:00 01/05/17 11:00 General appearance: Present: A&O X 2, mild distress (slow mentation, drowsy), no acute distress - Head Head exam: Present: atraumatic, normocephalic - Eye Eye exam: Present: PERRL, conjuntiva pink, sclera anicteric Pupils: Present: PERRL - Neck Neck exam general surgery: Present: supple, trachea midline. Absent: lymphadenopathy - Respiratory Respiratory exam: Present: CTAB. Absent: accessory muscle use, rales, rhonchi, wheezes - Cardiovascular Cardiovascular exam: Present: RRR, +S1, +S2. Absent: diastolic murmur, gallop, rubs, systolic murmur - GI/Abdominal GI/Abdominal exam: Present: normal bowel sounds, soft, no peritoneal signs. Absent: distended, tenderness - Extremities Exam Extremities exam: Present: warm, radial pulses palpable and symetrical. Absent : calf tenderness, cyanotic, pedal edema - Neurological Exam Neurological exam: Present: CN II-XII intact, oriented X3, no focal deficits. Absent: pronater drift, facial droop, speech deficit - Skin Skin exam: Present: dry, intact Internal Medicine: Result - Labs CBC & Chem 7: 01/05/17 04:36 01/05/17 04:36 Labs: Short CBC 01/05/17 Range/Units 04:36 WBC 8.6 (4.3-11.1) K/mcL Hgb 11.4 L (12.9-16.9) g/dL Hct 34.7 L (37.5-50.1) % Plt Count 254 (140-400) K/mcL Neutrophils # 6.1 (1.6-8.9) K/mcL BMP 01/05/17 04:36 Sodium 145 Potassium 3.9 Chloride 112 H Carbon Dioxide 23 BUN 22 Creatinine 0.70 L Glucose 93 Calcium 8.6 Cardiac Enzymes 01/04/17 Range/Units 15:26 Troponin I 0.06 H* (0-0.03) ng/mL - ABG Interpretation ABG results: PT/INR, D-dimer PT 29.7 Seconds (9.4-12.1) H 01/05/17 04:36 Consult Discharge Plan - Plan Additional Instructions: keep on po lasix pt appears to be euvolemic will sign off Thanks Referrals: NO,PCP [Primary Care Provider] -
[2017-01-05] MEDS ORDERED: Ondansetron 4 MG/2 ML VIAL IVP SCH (12:00)
[2017-01-05] MEDS ORDERED: Furosemide 20 MG/2 ML VIAL IVP ONE (14:43)
[2017-01-05] MEDS: Warfarin perPT PO SCH (15:17)
--- NOTE | 2017-01-05 15:27 | Electrocardiograph Report ---
[address] [address] Test Date: 2017-01-04 Pat Name: Shane Kearney Department: 111 Room: 02 Gender: M Cloth Cutting Machine Operator: : 1935 Requested By: Daniel Álvarez Order Number: [id number] Reading MD: Fang Talley Measurements Intervals [place] Rate: 43 P: [place]: 0 QRS: 5 QRSD: 97 T: 204 QT: 335 QTc: 281 Interpretive Statements ATRIAL FLUTTER/TACHYCARDIA WITH SLOW VENTRICULAR RESPONSE NONSPECIFIC ST \T\ T-WAVE ABNORMALITY LEAD V4 UNABLE TO BE INTERPRETED Electronically Signed On 01-05-2017 15:25:28 EST by Fang Talley
[2017-01-05] MEDS: Acetaminophen 325 MG TABLET PO PRN (20:44)
[2017-01-05] MEDS: Mirtazapine 15 MG TABLET PO SCH (20:45)
[2017-01-06 04:49] LABS: BUN/Creatinine Ratio 28 (6-26); Blood Urea Nitrogen 21 mg/dL (8-26); Calcium 8.9 mg/dL (8.6-10.8); Carbon Dioxide 21 mEq/L (19-29); Chloride 111 mEq/L (98-109); Glucose 72 mg/dL (70-99); Osmolality,Calculated 300 (280-300); Potassium 4.3 mEq/L (3.5-4.5); Sodium 144 mEq/L (136-145); eGFR For African Americans > 60 (> 60); eGFR For Non-African Americans > 60 (> 60)
[2017-01-06 04:54] LABS: INR 3.4; Prothrombin Time 37.6 Seconds (9.4-12.1)
[2017-01-06 06:04] LABS: Basophils # 0.1 K/mcL (0.0-0.2); Basophils % 0.7 %; Eosinophils # 0.3 K/mcL (0.0-0.6); Eosinophils % 3.5 %; Hematocrit 36.1 % (37.5-50.1); Hemoglobin 11.6 g/dL (12.9-16.9); Immature Granulocytes % 0.5 % (0-4); Immature Platelets 6.2 % (1.1-6.1); Lymphocytes # 1.4 K/mcL (0.6-4.6); Lymphocytes % 16.8 %; Mean Corpuscular HGB Conc 32.1 g/dL (31.6-35.5); Mean Corpuscular Hemoglobin 30.8 pg (28.0-33.3); Mean Corpuscular Volume 95.8 fL (83.0-100.0); Mean Platelet Volume 10.9 fL (9.4-12.4); Monocytes # 0.5 K/mcL (0.0-1.3); Monocytes % 6.2 %; Neutrophils # 6.2 K/mcL (1.6-8.9); Platelet Count 304 K/mcL (140-400); Red Blood Count 3.77 M/mcL (4.19-5.50); Red Cell Distribution Width 16.7 % (11.5-14.5); Segmented Neutrophils % 72.3 %
--- NOTE | 2017-01-06 08:01 | Cardiology Progress Note ---
Date of Encounter: 01/06/17 Time of Encounter: 07:59 Assessment and Plan (1) Acute respiratory failure with hypoxemia Current Visit: Yes Status: Acute Secondary to pulmonary edema, mild sytolic CHF, severe pulmonary hypertension. Spo2 98% on 2 L NC. Repeat CXR showed persistent CHF. Continue diuresis as tolerated. (2) Acute systolic (congestive) heart failure Current Visit: Yes Status: Acute EF 45%, global hypokenesis. Acute systolic heart failure. He was initially diuresed with IV lasix and changed to oral once euvolemic. Had increasing SOB. CXR 01/05/17 showed persistent CHF. Some improvement on the right. Medical management recommended for new low EF d/t advanced age and deconditioning. He denies chest pain. BNP 2300, 1921. Responded well to IV lasix yesterday. -755 ml. B/p currently stable off dobutamine. Kidney function is stable. Potassium is normal. Check BNP. Agree with holding carvedilol and jakob inhibitor to allow addition of diuretic. Consider adding back low dose jakob-inhibitor once euvolemic. We will continue to follow with you. (3) Atrial fibrillation and flutter Current Visit: Yes Status: Acute Known atrial fibrillation on coumadin therapy. Rate controlled atrial flutter on telemetry. Avg HR was 69 bpm. HR seen as low as 50 bpm at 1530 01/05/16. Hold carvedilol for hypotension and bradycardia and continue to monitor. - TSH 3.77 -INR 3.4, pharmacy dosing coumadin. (4) Hypotension Current Visit: Yes Status: Acute Hold anti-hypertensives. B/p improved. Qualifiers: Hypotension type: hypotension due to drug Qualified Code(s): I95.2 - Hypotension due to drugs (5) Bradycardia Current Visit: Yes Status: Acute Bradycardia seen after carvedilol given 01/04/17. Given atropine with good response. Hold AV khadar blockers. Continue to monitor telemetry. Avg HR 69 bpm over last 12 hours. Lowest HR 50 bpm. No significant pauses seen. Discussion w patient/family: The assessment and plan as outlined above was discussed with the patient and/or family members who expressed understanding and agreement. All questions were answered. Thank you for involving us in the care of your patient. Please call with any questions. Subjective Principal diagnosis: Acute systolic/diastolic CHF Interval history: Pt is breathing much better. Continues to have mild nausea. No acute events overnight. Objective Vital Signs, Last 4 Hours Temp Pulse Resp BP Pulse Ox 01/06/17 06:41 97.9 F 71 16 109/60 96 01/06/17 05:00 97.8 F 76 15 98/81 93 L General: Conversant, No Apparent Distress, Other (Frail elderly male) HEENT: Atraumatic, Normocephaly, Mucus Membranes Moist Neck: No JVD, Normal carotid pulses Cardiac: Other (irregularly irregular) Lungs: Normal Breath Sounds, No Wheeze, Rales, Rhonchi Neuro: Alert and responsive, No focal deficits noted Abdomen: Soft, Non-Tender Skin: No rashes noted on visualized skin Musculoskeletal: No Chest Wall Tenderness Extremities: No Clubbing, No Cyanosis, No Edema, Normal Pulses Results 01/06/17 05:39 01/06/17 04:07 Lab Results 01/06/17 01/06/17 01/06/17 04:07 04:07 05:39 WBC 8.5 Hgb 11.6 L Hct 36.1 L Plt Count 304 INR 3.4 Sodium 144 Potassium 4.3 Chloride 111 H Carbon Dioxide 21 BUN 21 Creatinine 0.75 Glucose [address] 01/03/17 15:54 IMPRESSION: 1. No acute intracranial abnormality. 2. Acute right maxillary sinusitis. D/ / 01/03/2017 16:49:39 Keo Davey MD / ebsusana Interpreting Provider: Keo Davey MD Chest X-Ray 01/05/17 10:08 IMPRESSION: Persistent CHF. Bilateral pleural effusions and bibasilar volume loss with some interval improvement on the right. D/ / 01/05/2017 14:38:14 Joaquin Nguyễn MD / bcarter Interpreting Provider: Joaquin Nguyễn MD - Imaging and Cardiology Chest Xray: report reviewed - EKG Interpretation EKG results cardiology: other (atrial flutter, rate controlled) Consult Discharge Plan - Plan Additional Instructions: keep on po lasix pt appears to be euvolemic will sign off Thanks Referrals: Hamilton Monaco, DEHYDRATOR OPERATOR [Advanced Practice Nurse] - 01/20/17 9:30 am NO,PCP [Primary Care Provider] -
[2017-01-06] MEDS ORDERED: Furosemide 20 MG/2 ML VIAL IVP ONE (08:43)
[2017-01-06] MEDS: Sennosides/Docusate Sodium TABLET PO SCH (09:43)
[2017-01-06] MEDS: Acetaminophen 325 MG TABLET PO PRN (10:48)
--- NOTE | 2017-01-06 11:47 | Internal Med Progress Note ---
Date of Encounter: 01/06/17 Time of Encounter: 10:00 - Assessment and plan (1) Acute respiratory failure with hypoxemia Current Visit: Yes Status: Acute Assessment and plan: respiratory symptoms secondary to cardiac issue. he feels much better. Chest x-ray shows persistent CHF. Continue Lasix as BP is tolerated. (2) Atrial fibrillation and flutter Current Visit: Yes Status: Acute Assessment and plan: on coumadin and rate controlled. Hold beta galina because of low blood pressure and bradycardia. Patient is at high risk because of his own Coumadin, needed close monitoring. (3) Hypotension Current Visit: Yes Status: Acute Assessment and plan: Possibly due to beta galina and FRANCISCA inhibitor, which are all on hold now. Cardiology consult appreciated. Off dopamine drip now and the blood pressure is okay. We will continue to closely monitor BP. Qualifiers: Hypotension type: hypotension due to drug Qualified Code(s): I95.2 - Hypotension due to drugs (4) Hypothyroidism Current Visit: Yes Status: Acute Assessment and plan: replacement therapy Qualifiers: Hypothyroidism type: unspecified Qualified Code(s): E03.9 - Hypothyroidism , unspecified (5) Systolic CHF Current Visit: Yes Status: Acute Assessment and plan: Echo shows EF of 40-45%. Elevated BNP. We will continue closely monitor patient. Cardiology on case and recommendation will follow. Qualifiers: Qualified Code(s): I50.20 - Unspecified systolic (congestive) heart failure (6) CHF exacerbation Current Visit: No Status: Acute Assessment and plan: Patient admitted with shortness of breath, consider CHF exacerbation. Now his respiratory distress has improved. Lasix is placed on low-dose because the blood pressure is low. Beta galina is on hold because of bradycardia. FRANCISCA inhibitor is also on hold because of low blood pressure. 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 Patient is on Coumadin and atorvastatin. (8) DVT prophylaxis Current Visit: Yes Status: Acute Assessment and plan: Therapeutic INR. - Time Spent With Patient Greater than 35 minutes - Subjective Interval history: Patient is a 81-year-old male admitted for SOB. His past medical history is significant for A. fib on Coumadin, CVA, hyperlipidemia, hypertension, thyroid disease. Patient was seen and examined. He has less shortness of breath, in no acute respiratory distress. Vitals are stable. BP is okay after off Dopamine. Chest x-ray shows persistent CHF, will continue low-dose Lasix as BP can tolerate. - Constitutional Vitals: Temp Pulse Resp BP Pulse Ox 98 F 81 15 109/54 93 L 01/06/17 11:00 01/06/17 11:20 01/06/17 11:00 01/06/17 11:00 01/06/17 11:00 General appearance: Present: A&O X 2, mild distress (slow mentation, drowsy), no acute distress - Head Head exam: Present: atraumatic, normocephalic - Eye Eye exam: Present: PERRL, conjuntiva pink, sclera anicteric Pupils: Present: PERRL - Neck Neck exam general surgery: Present: supple, trachea midline. Absent: lymphadenopathy - Respiratory Respiratory exam: Present: CTAB. Absent: accessory muscle use, rales, rhonchi, wheezes - Cardiovascular Cardiovascular exam: Present: RRR, +S1, +S2. Absent: diastolic murmur, gallop, rubs, systolic murmur - GI/Abdominal GI/Abdominal exam: Present: normal bowel sounds, soft, no peritoneal signs. Absent: distended, tenderness - Extremities Exam Extremities exam: Present: warm, radial pulses palpable and symetrical. Absent : calf tenderness, cyanotic, pedal edema - Neurological Exam Neurological exam: Present: CN II-XII intact, oriented X3, no focal deficits. Absent: pronater drift, facial droop, speech deficit - Skin Skin exam: Present: dry, intact Internal Medicine: Result - Labs CBC & Chem 7: 01/06/17 05:39 01/06/17 04:07 Labs: Short CBC 01/06/17 Range/Units 05:39 WBC 8.5 (4.3-11.1) K/mcL Hgb 11.6 L (12.9-16.9) g/dL Hct 36.1 L (37.5-50.1) % Plt Count 304 (140-400) K/mcL Neutrophils # 6.2 (1.6-8.9) K/mcL BMP 01/06/17 04:07 Sodium 144 Potassium 4.3 Chloride 111 H Carbon Dioxide 21 BUN 21 Creatinine 0.75 Glucose 72 Calcium 8.9 - ABG Interpretation ABG results: PT/INR, D-dimer PT 37.6 Seconds (9.4-12.1) H 01/06/17 04:07 - Impressions Impressions Chest X-Ray 01/05/17 10:08 IMPRESSION: Persistent CHF. Bilateral pleural effusions and bibasilar volume loss with some interval improvement on the right. D/ / 01/05/2017 14:38:14 Joaquin Nguyễn MD / eric Interpreting Provider: Joaquin Nguyễn MD Consult Discharge Plan - Plan Additional Instructions: keep on po lasix pt appears to be euvolemic will sign off Thanks Referrals: Hamilton Monaco, TURF SALES PERSON [Advanced Practice Nurse] - 01/20/17 9:30 am NO,PCP [Primary Care Provider] -
[2017-01-06] MEDS: Ondansetron 4 MG/2 ML VIAL IVP PRN (13:17)
[2017-01-06] MEDS: Melatonin 3 MG TABLET PO SCH (22:24)
[2017-01-06] MEDS: Mirtazapine 15 MG TABLET PO SCH (22:24)
[2017-01-07 05:54] LABS: Basophils % 0.3 %; Eosinophils # 0.1 K/mcL (0.0-0.6); Eosinophils % 1.2 %; Hematocrit 40.2 % (37.5-50.1); Immature Granulocytes % 0.5 % (0-4); Lymphocytes # 0.8 K/mcL (0.6-4.6); Mean Corpuscular HGB Conc 32.3 g/dL (31.6-35.5); Mean Corpuscular Hemoglobin 30.8 pg (28.0-33.3); Mean Corpuscular Volume 95.3 fL (83.0-100.0); Mean Platelet Volume 11.1 fL (9.4-12.4); Monocytes # 0.6 K/mcL (0.0-1.3); Monocytes % 5.4 %; Neutrophils # 9.9 K/mcL (1.6-8.9); Platelet Count 335 K/mcL (140-400); Red Blood Count 4.22 M/mcL (4.19-5.50); Red Cell Distribution Width 16.3 % (11.5-14.5); Segmented Neutrophils % 85.6 %
[2017-01-07 05:57] LABS: INR 3.3; Prothrombin Time 36.9 Seconds (9.4-12.1)
[2017-01-07 06:13] LABS: BUN/Creatinine Ratio 31 (6-26); Blood Urea Nitrogen 23 mg/dL (8-26); Calcium 9.4 mg/dL (8.6-10.8); Carbon Dioxide 26 mEq/L (19-29); Chloride 105 mEq/L (98-109); Glucose 101 mg/dL (70-99); Osmolality,Calculated 298 (280-300); Potassium 4.1 mEq/L (3.5-4.5); Sodium 142 mEq/L (136-145); eGFR For African Americans > 60 (> 60); eGFR For Non-African Americans > 60 (> 60)
[2017-01-07] MEDS: Sennosides/Docusate Sodium TABLET PO SCH (08:28)
--- NOTE | 2017-01-07 08:40 | Cardiology Progress Note ---
Date of Encounter: 01/07/17 Time of Encounter: 08:40 Assessment and Plan (1) Acute respiratory failure with hypoxemia Current Visit: Yes Status: Acute Secondary to pulmonary edema, mild sytolic CHF, severe pulmonary hypertension. Spo2 98% on 2 L NC. Repeat CXR showed persistent CHF. Symptoms improved after IV lasix. (2) Acute systolic (congestive) heart failure Current Visit: Yes Status: Acute EF 45%, global hypokenesis. Acute systolic heart failure. He was initially diuresed with IV lasix and changed to oral once euvolemic. Had increasing SOB. CXR 01/05/17 showed persistent CHF. Some improvement on the right. Medical management recommended for new low EF d/t advanced age and deconditioning. He denies chest pain. BNP 2300, 1921, 1986. Responded well to IV lasix. Breathing much better. B/p currently stable off dobutamine. Kidney function is stable. Potassium is normal. No jakob-inhibitor or beta-galina d/t hypotension and bradycardia on bb. Will add low dose toprol XL tomorrow with parameters. Start P.O. lasix 20 mg PRN SOB or edema. 1500ml fluid restriction. Low sodium diet. Daily weights. (3) Atrial fibrillation and flutter Current Visit: Yes Status: Acute Known atrial fibrillation on coumadin therapy. Rate controlled atrial flutter on telemetry. Avg HR was 73 bpm. HR seen as low as 50 bpm at 0137 01/07/16. Carvedilol held for hypotension and bradycardia. Plan to add low dose toprol xl in am if tolerated. Ordered with parameters. - TSH 3.77 -INR 3.3, pharmacy dosing coumadin. (4) Hypotension Current Visit: Yes Status: Acute Hold anti-hypertensives. B/p improved. Qualifiers: Hypotension type: hypotension due to drug Qualified Code(s): I95.2 - Hypotension due to drugs (5) Bradycardia Current Visit: Yes Status: Acute Bradycardia seen after carvedilol given 01/04/17. Given atropine with good response. Continue to monitor telemetry. Avg HR 73 bpm over last 12 hours. Lowest HR 50 bpm. No significant pauses seen. Will attempt to add low dose toprol xl. Discussion w patient/family: The assessment and plan as outlined above was discussed with the patient and/or family members who expressed understanding and agreement. All questions were answered. Thank you for involving us in the care of your patient. Please call with any questions. Plan of care discussed with Dr.John Talley. Adjustments will be made as needed. Subjective Principal diagnosis: Acute systolic/diastolic CHF Objective Vital Signs, Last 4 Hours Temp Pulse Resp BP Pulse Ox 01/07/17 06:59 98.5 F 69 18 100/56 96 01/07/17 05:00 97.5 F L 80 22 96/53 94 L Results 01/07/17 05:13 01/07/17 05:13 Lab Results 01/06/17 01/07/17 01/07/17 05:39 05:13 05:13 WBC 11.6 H Hgb 13.0 Hct 40.2 Plt Count 335 INR 3.3 Sodium Potassium Chloride Carbon Dioxide BUN Creatinine Glucose Calcium Magnesium B-Natriuretic Peptide 1987 H 01/07/17 05:13 WBC Hgb Hct Plt Count INR Sodium 142 Potassium 4.1 Chloride 105 Carbon Dioxide 26 BUN 23 Creatinine 0.75 Glucose 101 H Calcium 9.4 Magnesium 2.0 B-Natriuretic Peptide - EKG Interpretation EKG results cardiology: other (24 hour telemetry review shows avg HR at 73 bpm atrial flutter. Minimum HR was 50 bpm at 0137.) Consult Discharge Plan - Plan Additional Instructions: keep on po lasix pt appears to be euvolemic will sign off Thanks Referrals: Hamilton Monaco, MOTOR TESTER [Advanced Practice Nurse] - 01/20/17 9:30 am NO,PCP [Primary Care Provider] -
[2017-01-07] MEDS ORDERED: Furosemide 20 MG TABLET PO PRN (09:08)
--- NOTE | 2017-01-07 14:20 | Internal Med Progress Note ---
<Emerson Burger Ethan - Last Filed: 01/07/17 16:03> Date of Encounter: 01/07/17 Time of Encounter: 09:15 - Assessment and plan (1) Acute respiratory failure with hypoxemia Current Visit: Yes Status: Acute Assessment and plan: Improved from admission. Currently 97% on 3 liters oxygen. Likely secondary from Pulmonary edema and fluid overload. CXR 01/05/17 demonstrates persistent CHF, Bilateral Pleural effusions and bibasilar volume loss with some interval improvement on the right. Plan: - Continue to wean oxygen demand as tolerated. - Monitor volume status - Continue with gentle diuresis. - Maintain oxygen saturations >90% (2) Acute systolic (congestive) heart failure Current Visit: Yes Status: Acute Assessment and plan: Patient admitted on 01/01/2017 with Acute systolic heart failure exacerbation with BNP around 2300. He was originally diuresed with IV lasix and is now on PO Lasix with BNP trending down, patient appears euvolemic. Continues to have mild crackles in lung bases bilaterally. Mr. Kearney is maintaining his blood pressure since discontinuing Dobutamine. Renal function stable. Cardiology is following and appreciate recommendations. Echocardiogram from 01/01/2017 demonstrates LVEF 40-45% with global left ventricular systolic dysfunction, Severe pulmonary HTN, Moderately calcification of the aortic valve leaflets, with moderate aortic stenosis and regurgitation. Moderate-severe mitral regurgitation. Moderate-severe tricuspid regurgitation Plan: - Cardiology is following, with plans to start beta galina tomorrow, Lasix 20mg PO PRN. - Continue to hold jakob inhibitors with recent hypotensive episode -1500ml fluid restriction. - Low sodium diet. - Daily weights and strict I&O (3) Atrial fibrillation and flutter Current Visit: Yes Status: Acute Assessment and plan: Mr. Kearney is on coumadin and rate controlled. Beta blockers were held with recent Bradycardic and hypotensive episode. INR 3.3 today. Plan: - INR goal for Coumadin is 2.0-3.0 - Continue cardiac monitoring - Pharmacy dosing Coumadin. (4) Bradycardia Current Visit: Yes Status: Acute Assessment and plan: Bradycardic episode 01/04/2017 after receiving dose of Carvedilol. Heart rate has been 60-80. Plan: - Continue telemetry - Cardiology following with plans to reintroduce Toprolol XL tomorrow. (5) Constipation Current Visit: Yes Status: Acute Assessment and plan: Mr. Kearney was complaining of constipation and no response to Senna. He received Milk of Mag and a molasses enema with gross amount of stool discharge. Plan: - Hold Laxatives - May require scheduled Senna of constipation re-occurs. Qualifiers: Constipation type: unspecified constipation type Qualified Code(s): K59.00 - Constipation, unspecified (6) Hypothyroidism Current Visit: Yes Status: Acute Assessment and plan: Continue current Levothyroxine dose. Qualifiers: Hypothyroidism type: unspecified Qualified Code(s): E03.9 - Hypothyroidism , unspecified - Subjective Interval history: Mr. Kearney has been seen and evaluated at patient bedside this morning. He says his breathing is better but continues to feel short of breath. His complaint today is diarrhea that started this morning after receiving an enema and milk of mag. He denies any abdominal pain, chest pain, chest pressure, Palpitations. He has no further concerns at this time. - Constitutional Vitals: Temp Pulse Resp BP Pulse Ox 97.8 F 79 16 101/53 97 01/07/17 11:58 01/07/17 11:58 01/07/17 11:58 01/07/17 11:58 01/07/17 11:58 General appearance: Present: cooperative, A&O X 2, no acute distress Exam: poorly nourished. - Head Head exam: Present: atraumatic, normocephalic - Eye Eye exam: Present: PERRL, conjuntiva pink, sclera anicteric Pupils: Present: PERRL - Neck Neck exam general surgery: Present: supple, trachea midline. Absent: lymphadenopathy - Respiratory Additional comments: diffuse reduced inspiratory and expiratory breath sounds. - Cardiovascular Cardiovascular exam: Present: RRR, systolic murmur (grade 2/6 systolic ejection murmur). Absent: diastolic murmur, gallop, rubs - GI/Abdominal GI/Abdominal exam: Present: normal bowel sounds, soft, no peritoneal signs. Absent: distended, tenderness - Extremities Exam Extremities exam: Present: warm, radial pulses palpable and symetrical. Absent : calf tenderness, cyanotic, pedal edema Additional comments: Poor muscle distribution. Thin extremities. - Neurological Exam Neurological exam: Present: alert, no focal deficits. Absent: facial droop Internal Medicine: Result - Labs CBC & Chem 7: 01/07/17 05:13 01/07/17 05:13 Labs: Short CBC 01/07/17 Range/Units 05:13 WBC 11.6 H (4.3-11.1) K/mcL Hgb 13.0 (12.9-16.9) g/dL Hct 40.2 (37.5-50.1) % Plt Count 335 (140-400) K/mcL Neutrophils # 9.9 H (1.6-8.9) K/mcL BMP 01/07/17 05:13 Sodium 142 Potassium 4.1 Chloride 105 Carbon Dioxide 26 BUN 23 Creatinine 0.75 Glucose 101 H Calcium 9.4 - ABG Interpretation ABG results: PT/INR, D-dimer PT 36.9 Seconds (9.4-12.1) H 01/07/17 05:13 Consult Discharge Plan - Plan Additional Instructions: keep on po lasix pt appears to be euvolemic will sign off Thanks Referrals: Hamilton Monaco, DIRECTOR BUSINESS DEVELOPMENT [Advanced Practice Nurse] - 01/20/17 9:30 am NO,PCP [Primary Care Provider] - <Daniel Álvarez P - Last Filed: 01/07/17 17:04> Date of Encounter: 01/07/17 - Assessment and plan (1) Acute systolic (congestive) heart failure Current Visit: Yes Status: Acute (2) Elevated troponin Current Visit: No Status: Acute (3) Acute respiratory failure with hypoxemia Current Visit: Yes Status: Acute (4) Atrial fibrillation and flutter Current Visit: Yes Status: Acute (5) Hypothyroidism Current Visit: Yes Status: Acute Qualifiers: Hypothyroidism type: unspecified Qualified Code(s): E03.9 - Hypothyroidism , unspecified (6) CVA, old, 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 - Constitutional Vitals: Temp Pulse Resp BP Pulse Ox 98.3 F 77 14 101/56 94 L 01/07/17 16:38 01/07/17 16:38 01/07/17 16:38 01/07/17 16:38 01/07/17 16:38 Internal Medicine: Result - Labs CBC & Chem 7: 01/07/17 05:13 01/07/17 05:13 Labs: Short CBC 01/07/17 Range/Units 05:13 WBC 11.6 H (4.3-11.1) K/mcL Hgb 13.0 (12.9-16.9) g/dL Hct 40.2 (37.5-50.1) % Plt Count 335 (140-400) K/mcL Neutrophils # 9.9 H (1.6-8.9) K/mcL BMP 01/07/17 05:13 Sodium 142 Potassium 4.1 Chloride 105 Carbon Dioxide 26 BUN 23 Creatinine 0.75 Glucose 101 H Calcium 9.4 - ABG Interpretation ABG results: PT/INR, D-dimer PT 36.9 Seconds (9.4-12.1) H 01/07/17 05:13 - Attending Attestation I examined this patient and my medical decision-making was reviewed with the GRANTS SPECIALIST/PA/Advanced Practice Nurse/Resident Physician. I agree with the documented findings, disposition and treatment plan as described except to the extent set forth below.
[2017-01-07] MEDS: Melatonin 3 MG TABLET PO SCH (20:06)
[2017-01-07] MEDS: Mirtazapine 15 MG TABLET PO SCH (20:06)
[2017-01-08 06:02] LABS: Basophils # 0.1 K/mcL (0.0-0.2); Basophils % 0.5 %; Eosinophils # 0.2 K/mcL (0.0-0.6); Eosinophils % 2.3 %; Hematocrit 38.1 % (37.5-50.1); Hemoglobin 12.2 g/dL (12.9-16.9); Immature Granulocytes % 0.5 % (0-4); Lymphocytes # 1.2 K/mcL (0.6-4.6); Lymphocytes % 12.4 %; Mean Corpuscular Hemoglobin 30.4 pg (28.0-33.3); Mean Platelet Volume 10.8 fL (9.4-12.4); Monocytes # 0.6 K/mcL (0.0-1.3); Monocytes % 5.8 %; Neutrophils # 7.9 K/mcL (1.6-8.9); Platelet Count 329 K/mcL (140-400); Red Blood Count 4.01 M/mcL (4.19-5.50); Red Cell Distribution Width 16.1 % (11.5-14.5); Segmented Neutrophils % 78.5 %
[2017-01-08 06:04] LABS: INR 3.2; Prothrombin Time 35.3 Seconds (9.4-12.1)
[2017-01-08 06:23] LABS: Alanine Aminotransferase 36 Units/L (0-55); Albumin/Globulin Ratio 0.4 (1.1-2.2); Alkaline Phosphatase 89 Units/L (38-126); Aspartate Amino Transferase 43 Units/L (5-34); BUN/Creatinine Ratio 27 (6-26); Bilirubin,Total 0.5 mg/dL (0.2-1.2); Blood Urea Nitrogen 20 mg/dL (8-26); Calcium 8.9 mg/dL (8.6-10.8); Carbon Dioxide 29 mEq/L (19-29); Chloride 106 mEq/L (98-109); Globulin 4.6 g/dL (2.4-3.5); Glucose 81 mg/dL (70-99); Osmolality,Calculated 298 (280-300); Potassium 4.3 mEq/L (3.5-4.5); Sodium 143 mEq/L (136-145); Total Protein 6.6 g/dL (6.0-8.3); eGFR For African Americans > 60 (> 60); eGFR For Non-African Americans > 60 (> 60)
[2017-01-08] MEDS ORDERED: Metoprolol XL (24 HR) Succ 25 MG TAB.ER.24H PO SCH (09:00)
--- NOTE | 2017-01-08 09:58 | Cardiology Progress Note ---
Date of Encounter: 01/08/17 Time of Encounter: 09:55 Assessment and Plan (1) Acute respiratory failure with hypoxemia Current Visit: Yes Status: Acute Likely secondary to pulmonary edema, mild sytolic CHF, severe pulmonary hypertension. Spo2 98% on 2 L NC. Symptoms improved after IV lasix. Now on oral lasix as needed. (2) Acute systolic (congestive) heart failure Current Visit: Yes Status: Acute EF 45%, global hypokenesis. Acute systolic heart failure. Medical management recommended for new low EF d/t advanced age and deconditioning. He denies chest pain. BNP 2300, 1921, 1986. Responded well to IV lasix. Breathing much better. Now on oral lasix as needed. B/p remains stable off dobutamine. Kidney function is stable. Potassium is normal. Kennedy-inhibitor and beta-galina discontinued d/t hypotension and bradycardia on bb. Low dose toprol XL with parameters started. Start P.O. lasix 20 mg PRN SOB or edema. 1500ml fluid restriction. Low sodium diet. Daily weights. Cardiology will sign off. Call with questions. 1-2 week f/u will be made by cardiology office. (3) Atrial fibrillation and flutter Current Visit: Yes Status: Acute Known atrial fibrillation on coumadin therapy. Rate controlled atrial flutter on telemetry. Avg HR was 74 bpm. HR seen as low as 50 bpm at 1330 01/07/16. Carvedilol held for hypotension and bradycardia. Low dose toprol xl started with parameters. - TSH 3.77 -INR 3.2, pharmacy dosing coumadin. -Goal INR 2.0-3.0. (4) Hypotension Current Visit: Yes Status: Acute B/p improved. Qualifiers: Hypotension type: hypotension due to drug Qualified Code(s): I95.2 - Hypotension due to drugs (5) Bradycardia Current Visit: Yes Status: Acute Bradycardia seen after carvedilol given 01/04/17. Given atropine with good response. Continue to monitor telemetry. Avg HR 74 bpm over last 12 hours. Lowest HR 50 bpm. No significant pauses seen. Will attempt to add low dose toprol xl when able. Discussion w patient/family: The assessment and plan as outlined above was discussed with the patient and/or family members who expressed understanding and agreement. All questions were answered. Thank you for involving us in the care of your patient. Please call with any questions. Plan of care discussed with Dr.John Talley. Adjustments will be made as needed. Subjective Principal diagnosis: Acute systolic/diastolic CHF Interval history: He denies sob this morning. He is eating this morning without nausea. Objective Vital Signs, Last 4 Hours Temp Pulse Resp BP Pulse Ox 01/08/17 07:00 97.6 F 77 20 91/49 100 General: Conversant, No Apparent Distress HEENT: Atraumatic, Normocephaly, Mucus Membranes Moist Neck: No JVD, Normal carotid pulses Cardiac: Reg Rate and Rhythm, Normal S1 and S2, No Murmur Lungs: Other (respirations easy, fine rales in bases noted. Spo2 100% on 3L. ) Neuro: Alert and responsive, No focal deficits noted Abdomen: Soft, Non-Tender Skin: No rashes noted on visualized skin Musculoskeletal: No Chest Wall Tenderness Extremities: No Clubbing, No Cyanosis, No Edema, Normal Pulses Results 01/08/17 05:31 01/08/17 05:31 Lab Results 01/08/17 01/08/17 01/08/17 05:31 05:31 05:31 WBC 10.0 Hgb 12.2 L Hct 38.1 Plt Count 329 INR 3.2 Sodium 143 Potassium 4.3 Chloride 106 Carbon Dioxide 29 BUN 20 Creatinine 0.74 Glucose 81 Calcium 8.9 Total Bilirubin 0.5 AST 43 H ALT 36 Alkaline Phosphatase 89 - EKG Interpretation EKG results cardiology: other (ATrial flutter seen on 24 hour telemetry review. Avg Hr was 74 bpm. Minimum was 50 bpm at 1304 2/9. Fastest Hr was 75 bpm. No pauses seen.) Consult Discharge Plan - Plan Additional Instructions: keep on po lasix pt appears to be euvolemic will sign off Thanks Referrals: Hamilton Monaco, MEDICAL GRADE SHOEMAKER [Advanced Practice Nurse] - 01/20/17 9:30 am NO,PCP [Primary Care Provider] -
[2017-01-08 11:21] VITALS: BP 90/52
[2017-01-08] MEDS: Acetaminophen 325 MG TABLET PO PRN (12:22)
--- NOTE | 2017-01-08 13:12 | Internal Med Progress Note ---
Date of Encounter: 01/08/17 Time of Encounter: 08:15 - Assessment and plan (1) Acute respiratory failure with hypoxemia Current Visit: Yes Status: Acute (2) Acute systolic (congestive) heart failure Current Visit: Yes Status: Acute (3) Atrial fibrillation and flutter Current Visit: Yes Status: Acute (4) Bradycardia Current Visit: Yes Status: Acute (5) Constipation Current Visit: Yes Status: Acute Qualifiers: Constipation type: unspecified constipation type Qualified Code(s): K59.00 - Constipation, unspecified (6) Hypothyroidism Current Visit: Yes Status: Acute Qualifiers: Hypothyroidism type: unspecified Qualified Code(s): E03.9 - Hypothyroidism , unspecified - Subjective Interval history: Mr. Kearney has been seen and evaluated at patient bedside this morning. He denies any discomfort or troubles this morning. He says his breathing is fine and he wishes to go back to the half-way. He denies any Chest pain, chest pressure, abdominal pain, swelling in his extremities. - Constitutional Vitals: Temp Pulse Resp BP Pulse Ox 98.5 F 72 18 90/52 95 01/08/17 11:15 01/08/17 11:15 01/08/17 11:15 01/08/17 11:15 01/08/17 11:15 General appearance: Present: cooperative, A&O X 2, no acute distress - Head Head exam: Present: atraumatic, normocephalic - Eye Eye exam: Present: PERRL, conjuntiva pink, sclera anicteric Pupils: Present: PERRL - ENT ENT exam: Present: mucous membranes moist - Neck Neck exam general surgery: Present: supple, trachea midline. Absent: lymphadenopathy - Respiratory Respiratory exam: Absent: accessory muscle use, rales, rhonchi, wheezes Additional comments: mild crackles in lung bases, Diffuse expiratory wheezing, Respiratory effort is non-labored. - Cardiovascular Cardiovascular exam: Present: irregular rhythm. Absent: diastolic murmur, gallop, rubs, systolic murmur Additional comments: grade 2/6 systolic ejection murmur. - GI/Abdominal GI/Abdominal exam: Present: normal bowel sounds, soft, no peritoneal signs. Absent: distended, tenderness - Extremities Exam Extremities exam: Present: warm, radial pulses palpable and symetrical. Absent : calf tenderness, cyanotic, pedal edema - Neurological Exam Neurological exam: Present: alert Internal Medicine: Result - Labs CBC & Chem 7: 01/08/17 05:31 01/08/17 05:31 Labs: Short CBC 01/08/17 Range/Units 05:31 WBC 10.0 (4.3-11.1) K/mcL Hgb 12.2 L (12.9-16.9) g/dL Hct 38.1 (37.5-50.1) % Plt Count 329 (140-400) K/mcL Neutrophils # 7.9 (1.6-8.9) K/mcL BMP 01/08/17 05:31 Sodium 143 Potassium 4.3 Chloride 106 Carbon Dioxide 29 BUN 20 Creatinine 0.74 Glucose 81 Calcium 8.9 Liver Function 01/08/17 Range/Units 05:31 Total Bilirubin 0.5 (0.2-1.2) mg/dL AST 43 H (5-34) Units/L ALT 36 (0-55) Units/L Alkaline Phosphatase 89 (38-126) Units/L Albumin 2.0 L (3.5-5.0) g/dL - ABG Interpretation ABG results: PT/INR, D-dimer PT 35.3 Seconds (9.4-12.1) H 01/08/17 05:31 Consult Discharge Plan - Plan Additional Instructions: keep on po lasix pt appears to be euvolemic will sign off Thanks Referrals: Hamilton Monaco, AUTHOR'S AGENT [Advanced Practice Nurse] - 01/20/17 9:30 am NO,PCP [Primary Care Provider] -
--- NOTE | 2017-01-08 13:18 | Discharge Summary ---
<Emerson Burger Ethan - Last Filed: 01/08/17 13:42> Date of Encounter: 01/08/17 Time of Encounter: 10:00 - Discharge Diagnosis (1) Acute respiratory failure with hypoxemia Priority: Primary Status: Acute (2) Acute systolic (congestive) heart failure Priority: Primary Status: Acute (3) Atrial fibrillation and flutter Priority: Primary Status: Acute (4) Bradycardia Priority: Secondary Status: Acute (5) Constipation Priority: Secondary Status: Acute Qualifiers: Constipation type: unspecified constipation type Qualified Code(s): K59.00 - Constipation, unspecified (6) Hypothyroidism Priority: Secondary Status: Acute Qualifiers: Hypothyroidism type: unspecified Qualified Code(s): E03.9 - Hypothyroidism , unspecified - Discharge Medications Prescriptions: Metoprolol XL (24 HR) Succ [Toprol Xl] 12.5 mg PO DAILY #30 tab.er.24h Home Medications: Atorvastatin [Lipitor] 20 mg PO HS 12/23/16 [History] Levothyroxine Sodium [Levoxyl] 88 mcg PO DAILY 12/23/16 [History] Omeprazole 20 mg PO DAILY 12/23/16 [History] Sennosides/Docusate Sodium [Senna Plus] 1 tab PO BID 12/23/16 [History] Warfarin perPT [Coumadin perPT] 0.5 mg PO Q48H 12/23/16 [History] Acetaminophen [Tylenol] 1,000 mg PO Q8H 12/24/16 [History] Furosemide [Lasix] 20 mg PO DAILY #10 tablet 12/24/16 [Rx] Multivitamin [Multi-Day Vitamins] 1 tab PO DAILY 12/24/16 [History] Citalopram [CeleXA] 5 mg PO DAILY 01/01/17 [History] Lactose-Reduced Food [Ensure Original] 1 bottle PO QPM 01/01/17 [History] Mirtazapine [Remeron] 15 mg PO HS 01/01/17 [History] Potassium Chloride [K-Tab ER] 10 meq PO BID 01/01/17 [History] Metoprolol XL (24 HR) Succ [Toprol Xl] 12.5 mg PO DAILY #30 tab.er.24h 01/08/17 [Rx] Allergies/Adverse Reactions: Allergies metoclopramide [From Reglan] Allergy (Verified 01/01/17 04:15) See Comments Unknown reaction. Date of admission: 01/02/17 08:53 Primary care physician: PCP NO Consults: 01/01/17 08:40 Consult to Gas Plant Operator [CONS] Routine Reason for SW Consult: planning discharge 01/01/17 08:41 Consult to Gas Plant Operator [CONS] Routine Reason for SW Consult: CURRENT RESIDENT AT [facility] 01/01/17 11:57 Consult to Cardiology [CONS] Routine Comment: Consulting Provider: Emmanuel Holliday Reason for Consult: new diagnosis of pulm edema. elevated trops. Call Completed: Yes 01/04/17 16:38 Consult to Cardiology [CONS] Routine Comment: Consulting Provider: Emmanuel Holliday Reason for Consult: symptomatic bradycardia, cardiogenic shock on dobutamine drip Time Notified: 16:41 Call Completed: Yes 01/07/17 18:42 Consult to Physical Therapy [CONS] Routine Comment: Evaluate, develop and implement POC 01/07/17 18:43 Consult to Occupational Therapy [CONS] Routine Comment: Evaluate, develop and implement POC Discharging clinician: Emerson Burger Anticipated date of discharge: 01/08/17 - Patient Status Disposition: Transfer SNF Condition: Good Overall status at discharge: patient is progressing back to baseline - Discharge Instructions Follow Up With: Hamilton Monaco CNP [Advanced Practice Nurse] - 01/20/17 9:30 am NO,PCP [Primary Care Provider] - Additional Instructions: Take medications as prescribed. Follow up with PCP in the next 3-5 days - Diet and Activity Activity: as per physical therapy Diet: low fat, low cholesterol Hospital course: Mr. Kearney is a 81 year old male with a history of atrial fibrillation, CVA, GERD, hyperlipidemia hypertension and thyroid disease was admitted to [facility] with acute respiratory failure and acute heart failure exacerbation. He was started on IV Lasix, on cardiac monitoring and oxygen. Cardiology was consulted as the patient had elevated troponin levels and worsening CHF exacerbation. He suffered a bradycardic episode after receiving a dose Coreg and was given a dose of Atropine and then started on a dobutamine drip. He was transferred from general medical floor to the progressive care unit for further care. His heart rate stabilized and he was continued on diuresis with improvement in his volume status. Lasix was reduced to Lasix 20mg PRN and he was transferred back to general medical floor for continued care and treatment. He was continued to be seen by cardiology and was started on Toprol XL 12.5mg daily. He remained stable for the remainder of his care. He was seen and evaluated patient bedside on 01/08/2017 and was deemed stable for discharge back to his long term. Patient's INR was 3.2 at the time of discharge. Warfarin should be held until INR is rechecked on 01/11/2017. Goal range of INR 2.0-3.0. This information to be communicated to physician at long term. This information has been communicated to the patient's long term nurse at [facility] and care: Deidra RN New medication: Toprolol XL 12.5mg - Time Spent with Patient Total time spent providing and/or coordinating discharge services: - Constitutional Vitals: Temp Pulse Resp BP Pulse Ox 98.5 F 72 18 90/52 95 01/08/17 11:15 01/08/17 11:15 01/08/17 11:15 01/08/17 11:15 01/08/17 11:15 General appearance: Present: cooperative, A&O X 2, no acute distress - Head Head exam: Present: atraumatic, normocephalic - Eye Eye exam: Present: PERRL, conjuntiva pink, sclera anicteric Pupils: Present: PERRL - Neck Neck exam general surgery: Present: supple, trachea midline - Respiratory Respiratory exam: Absent: accessory muscle use, rales, rhonchi, wheezes Additional comments: bilateral mild crackles in lung bases, Diffuse expiratory wheeze. - Cardiovascular Cardiovascular exam: Present: irregular rhythm - GI/Abdominal GI/Abdominal exam: Present: normal bowel sounds, soft, no peritoneal signs. Absent: distended, tenderness - Extremities Exam Extremities exam: Present: warm, radial pulses palpable and symetrical. Absent : calf tenderness, cyanotic, pedal edema - Neurological Exam Neurological exam: Present: alert, no focal deficits - Psychiatric Psychiatric exam: Present: flat affect <Daniel Álvarez P - Last Filed: 01/08/17 14:11> Date of Encounter: 01/08/17 - Discharge Diagnosis (1) Acute systolic (congestive) heart failure Status: Acute (2) Elevated troponin Status: Acute (3) Acute respiratory failure with hypoxemia Status: Acute (4) Atrial fibrillation and flutter Status: Acute (5) Hypothyroidism Status: Acute Qualifiers: Hypothyroidism type: unspecified Qualified Code(s): E03.9 - Hypothyroidism , unspecified (6) CVA, old, hemiparesis Status: Chronic Date of admission: 01/02/17 08:53 Primary care physician: PCP NO Consults: 01/01/17 08:40 Consult to Gas Plant Operator [CONS] Routine Reason for SW Consult: planning discharge 01/01/17 08:41 Consult to Gas Plant Operator [CONS] Routine Reason for SW Consult: CURRENT RESIDENT AT [facility] 01/01/17 11:57 Consult to Cardiology [CONS] Routine Comment: Consulting Provider: Cardiology [place] Reason for Consult: new diagnosis of pulm edema. elevated trops. Call Completed: Yes 01/04/17 16:38 Consult to Cardiology [CONS] Routine Comment: Consulting Provider: Cardiology [place] Reason for Consult: symptomatic bradycardia, cardiogenic shock on dobutamine drip Time Notified: 16:41 Call Completed: Yes 01/07/17 18:42 Consult to Physical Therapy [CONS] Routine Comment: Evaluate, develop and implement POC 01/07/17 18:43 Consult to Occupational Therapy [CONS] Routine Comment: Evaluate, develop and implement POC Hospital course: Mr. Kearney is a 81 year old male - Time Spent with Patient Total time spent providing and/or coordinating discharge services: - Constitutional Vitals: Temp Pulse Resp BP Pulse Ox 98.5 F 72 18 90/52 95 01/08/17 11:15 01/08/17 11:15 01/08/17 11:15 01/08/17 11:15 01/08/17 11:15 - Attending Attestation I examined this patient and my medical decision-making was reviewed with the GRADING MACHINE FEEDER/PA/Advanced Practice Nurse/Resident Physician. I agree with the documented findings, disposition and treatment plan as described except to the extent set forth below. spoken to Deidra RN from [facility] and explained about INR to check on Wednesday.
--- NOTE | 2017-01-08 13:42 | Physician Discharge Referral ---
<Emerson Burger - Last Filed: 01/08/17 13:39> ExtendedCare Referral Info Transfer To: skilled nursing Provider in Charge after Transfer: PCP Institutional Level of Care: Skilled - Diagnosis (1) Acute respiratory failure with hypoxemia Priority: Primary Status: Acute (2) Acute systolic (congestive) heart failure Status: Acute (3) Atrial fibrillation and flutter Status: Acute (4) Bradycardia Status: Acute (5) Constipation Status: Acute (6) Hypothyroidism Status: Acute - Transfer Medications Prescriptions: Metoprolol XL (24 HR) Succ [Toprol Xl] 12.5 mg PO DAILY #30 tab.er.24h Home Medications: Atorvastatin [Lipitor] 20 mg PO HS 12/23/16 [History] Levothyroxine Sodium [Levoxyl] 88 mcg PO DAILY 12/23/16 [History] Omeprazole 20 mg PO DAILY 12/23/16 [History] Sennosides/Docusate Sodium [Senna Plus] 1 tab PO BID 12/23/16 [History] Warfarin perPT [Coumadin perPT] 0.5 mg PO Q48H 12/23/16 [History] Acetaminophen [Tylenol] 1,000 mg PO Q8H 12/24/16 [History] Furosemide [Lasix] 20 mg PO DAILY #10 tablet 12/24/16 [Rx] Multivitamin [Multi-Day Vitamins] 1 tab PO DAILY 12/24/16 [History] Citalopram [CeleXA] 5 mg PO DAILY 01/01/17 [History] Lactose-Reduced Food [Ensure Original] 1 bottle PO QPM 01/01/17 [History] Mirtazapine [Remeron] 15 mg PO HS 01/01/17 [History] Potassium Chloride [K-Tab ER] 10 meq PO BID 01/01/17 [History] Metoprolol XL (24 HR) Succ [Toprol Xl] 12.5 mg PO DAILY #30 tab.er.24h 01/08/17 [Rx] Allergies/Adverse Reactions: Allergies metoclopramide [From Reglan] Allergy (Verified 01/01/17 04:15) See Comments Unknown reaction. - Respiratory Orders Oxygen / L per min Smoking Cessation: Smoking cessation has been advised. For more information, call the [place] Tobacco Quit Line at 8-320-CCMU-NOW. - Ancillary Orders May use pressure relief devices daily prn, May consult with Dentist, Washcoat Wiper, Ball Truing Machine Operator PRN - Advance Directives Living Will: No Power of Field Representative: No Code Status: DNR-Arrest/Don't Intubate - Mobility Orders Ambulate - Rehabiliation Orders Rehab Orders: Evaluation for Physical Therapy, Evaluation for Occupational Therapy - Treatments Skin tear care topically daily PRN per policy, May check for fecal impaction rectally daily PRN, Fleet enema rectally every other day PRN cleansing purposes - Diet Orders Regular CERTIFICATION: I certify that the transfer of the above named patient to an Extended Care Facility is necessary for the continuing treatment of the diagnosis listed. The above information is true and accurate reflection of patient's current condition. Confidential - Redisclosure prohibited without a patient's written consent. <Daniel Álvarez P - Last Filed: 01/08/17 13:53> - Diagnosis (1) Acute systolic (congestive) heart failure Status: Acute (2) Elevated troponin Status: Acute (3) Acute respiratory failure with hypoxemia Status: Acute (4) Atrial fibrillation and flutter Status: Acute (5) Hypothyroidism Status: Acute (6) CVA, old, hemiparesis Status: Chronic - Respiratory Orders Smoking Cessation: Smoking cessation has been advised. For more information, call the [place] Tobacco Quit Line at 1-138-CVXE-NOW. CERTIFICATION: I certify that the transfer of the above named patient to an Extended Care Facility is necessary for the continuing treatment of the diagnosis listed. The above information is true and accurate reflection of patient's current condition. Confidential - Redisclosure prohibited without a patient's written consent.
[2017-01-08] MEDS ORDERED: Acetaminophen/Butalbital/CaffeineTABLET PO ONE (14:55)
== END 2017-01-08 18:40 | DRG 291 ==
LOC: 2NENU → SUATTDRO 01-02 08:53 → 2NNU 01-04 16:21 → 2NENU 01-06 12:58
PROVIDERS: ADMIT Pediatrics; ATTEND Internal Medicine